=== PATIENT | male | born 1940 | race Caucasian/White ===

== ENCOUNTER 2016-12-17 11:47 | Inpatient (IN) | payer MEDICARE, OTHER ==
[~2016-12-17] VITALS: Ht 182.9 cm; Wt 117.8 kg
[~2016-12-17 11:47] MED LIST: ALLO300 PO; BUME1TAB PO; CARV6.25 PO; CENTTAB9 PO; COLC1TAB7 PO; PROT40TA PO; QUIN5 PO; SIMV20 PO; SPIR25 PO; ZITH250T PO
[2016-12-17 11:52] VITALS: BP 129/64; PULSE 79; RESP 18; TEMP 98.4; O2SAT 95
--- NOTE | 2016-12-17 12:11 | PD ---
HPI . Right foot and ankle injury Chief Complaint: Injury Time Seen by Provider: 12:07 Travel History International Travel<30 days: No Contact w/Intl Traveler<30days: No Traveled to known affect area: No History of Present Illness HPI 76-year-old male patient presents to the emergency room for evaluation of right foot and ankle swelling, ecchymosis and pain. Patient states he was walking up stairs from his garage into his house last Monday and twisted his foot in an awkward position. Patient has had pain and swelling ever since. The foot and leg is neurovascularly intact. Patient has been ambulatory on the leg with his walker or cane since the injury. Patient is able to wiggle his toes but has decreased range of motion associated with ankle. Dorsi and pedal flexion limited. There is ecchymosis noted on the lateral aspect of the foot from the second toe to the fifth toe and extending upward towards the lateral malleolus. She denies any history of diabetes. Patient denies any chest pain, shortness breath, fevers, chills, malaise, nausea, vomiting, diarrhea. PFSH Past Medical History Blood Disorders: No Heart Rhythm Problems: Yes Cancer: Yes (SKIN CANCER) Cardiovascular Problems: Yes (CHF) High Cholesterol: Yes Chest Pain: Yes Congestive Heart Failure: Yes Coronary Artery Disease: Yes Diminished Hearing: Yes Endocrine: No GERD: Yes Hypertension: Yes Musculoskeletal: Yes (GOUT) Neurologic: Yes (MS AND SEE NEURO SURGERY COMMENT) Psychiatric: No Respiratory: Yes (CHF, WEARS CPAP AT NIGHT) Myocardial Infarction: Yes Renal Failure: Yes (RENAL INSUFFICIENCY ON FLUID RESTRICTION) Ulcer: Yes (GASTRIC) PNEUMOCCOCAL Vaccine (Year): 1 Past Surgical History AICD: Yes (04/29/08 MODEL [id number], [id number]) Body Medical Devices: HX OF ACUOSTIC NEUROMA Cardiac Surgery: Yes (2001 STENT, PACER WIRES, NO PACER aicd) Eye Surgery: Yes (OD CATARACT) Neurologic Surgery: Yes (ACOUSTIC NEUROMA 1994, NERVE INJURY HEARING, BALANCE DIFF, FACIAL PARALYSIS) Pacemaker: Yes (PACER/DEFIB PLACED IN JUNE 2005) Social History Alcohol Use: Yes Tobacco Use: No Substance Use: No Allergies-Medications (Allergen,Severity, Reaction): Coded Allergies: acetaminophen (Unverified Allergy, Severe, Rash, 10/18/16) codeine (Unverified Allergy, Severe, Rash, 10/18/16) Reported Meds & Prescriptions Reported Meds & Active Scripts Active Reported Spironolactone 25 Mg Tab 25 Mg PO DAILY Simvastatin 20 Mg Tab 20 Mg PO DAILY Accupril (Quinapril HCl) 5 Mg Tab 5 Mg PO BID Protonix (Pantoprazole Sodium) 40 Mg Tab 40 Mg PO BID Multiple Vitamin 1 Tab 1 Tab PO DAILY Colchicine 0.6 Mg Cap 0.6 Mg PO DAILY Coreg (Carvedilol) 12.5 Mg Tab 12.5 Mg PO DAILY Bumetanide 1 Mg Tab 1 Mg PO BID Allopurinol 300 Mg Tab 300 Mg PO DAILY Review of Systems Except as stated in HPI: all other systems reviewed are Neg Physical Exam Narrative GENERAL: Well-nourished, well-developed 76-year-old male patient in no acute distress. Nontoxic appearing. SKIN: Focused skin assessment warm/dry. HEAD: Normocephalic. Atraumatic. EYES: No scleral icterus. No injection or drainage. NECK: Supple, trachea midline. No JVD or lymphadenopathy. CARDIOVASCULAR: Regular rate and rhythm without murmurs, gallops, or rubs. Pedal pulses +2 bilaterally. RESPIRATORY: Breath sounds equal bilaterally. No accessory muscle use. GASTROINTESTINAL: Abdomen soft, non-tender, nondistended. MUSCULOSKELETAL: Limited range of motion with dorsi and pedal flexion on the right lower extremity. Right foot and ankle edematous and ecchymotic. No erythema or cyanosis. BACK: Nontender without obvious deformity. No CVA tenderness. Data Data Last Documented VS Vital Signs Date Time Temp Pulse Resp B/P (MAP) Pulse Ox O2 Delivery O2 Flow Rate FiO2 12/17/16 13:24 16 12/17/16 11:52 98.4 79 129/64 (85) 95 Orders Orders Ice/Cold Pack (12/17/16 12:08) Ketorolac Inj (Toradol Inj) (12/17/16 12:15) Ankle, Limited (Ap&Lat) (12/17/16 12:08) Foot, Limited (2vws) (12/17/16 12:08) Electrocardiogram (12/17/16 14:03) Basic Metabolic Panel (Bmp) (12/17/16 14:03) Complete Blood Count With Diff (12/17/16 14:03) Prothrombin Time / Inr (Pt) (12/17/16 14:03) Act Partial Throm Time (Ptt) (12/17/16 14:03) Chest, Single Ap (12/17/16 14:13) Labs Laboratory Tests Test 12/17/16 14:05 White Blood Count 7.3 TH/MM3 Red Blood Count 4.48 MIL/MM3 Hemoglobin 14.6 GM/DL Hematocrit 44.2 % Mean Corpuscular Volume 98.6 FL Mean Corpuscular Hemoglobin 32.7 PG Mean Corpuscular Hemoglobin Concent 33.2 % Red Cell Distribution Width 14.9 % Platelet Count 133 TH/MM3 Mean Platelet Volume 9.3 FL Neutrophils (%) (Auto) 59.1 % Lymphocytes (%) (Auto) 26.8 % Monocytes (%) (Auto) 7.7 % Eosinophils (%) (Auto) 5.2 % Basophils (%) (Auto) 1.2 % Neutrophils # (Auto) 4.2 TH/MM3 Lymphocytes # (Auto) 2.0 TH/MM3 Monocytes # (Auto) 0.6 TH/MM3 Eosinophils # (Auto) 0.4 TH/MM3 Basophils # (Auto) 0.1 TH/MM3 CBC Comment DIFF FINAL Differential Comment MDM Medical Decision Making Medical Screen Exam Complete: Yes Emergency Medical Condition: Yes Differential Diagnosis Differential diagnoses include but not limited to right foot fracture, right foot contusion, ankle sprain Narrative Course 76-year-old male presents to the emergency room for evaluation of right foot pain and swelling that started last Monday when he was walking up steps and twisted his ankle in an awkward position. The right foot is ecchymotic and edematous. He has limited range of motion with dorsi and pedal flexion. The foot is neurovascularly intact. X-ray of the right ankle and foot ordered and pending. Ice applied to the right foot. Toradol IM injection ordered for pain and swelling. Ankle x-ray shows distal fibular fracture and slight widening in the ankle mortise. Inferior and posterior calcaneal Spurs present Foot x-ray shows the same distal tibia fracture. Call placed to the fishing vessel operator on-call, Dr. Balbuena. Dr. Balbuena is going to surgically repair the fracture. The patient will be admitted to [facility] with a Dr Balbuena consult. Dr. Stern accepted admission. CBC, BMP, chest x-ray and EKG ordered and pending for surgical clearance. Patient will be admitted. Diagnosis Primary Impression: Fibula fracture Qualified Codes: S82.831A - Other fracture of upper and lower end of right fibula, initial encounter for closed fracture Additional Impression: Right ankle swelling Admitting Information Admitting Physician Requests: Observation Ruby Latif Dec 17, 2016 12:11
[2016-12-17] MEDS ORDERED: SIMV20TA PO (12:14)
[2016-12-17] MEDS ORDERED: BUME1TAB PO (12:14)
[2016-12-17] MEDS ORDERED: PROT40TA PO (12:14)
[2016-12-17] MEDS ORDERED: MULTTAB67 PO (12:14)
[2016-12-17] MEDS ORDERED: CARV12.5 PO (12:14)
[2016-12-17] MEDS ORDERED: COLC1CAP3 PO (12:14)
[2016-12-17] MEDS ORDERED: ALLO300T2 PO (12:14)
[2016-12-17] MEDS ORDERED: ACCU5TAB PO (12:14)
[2016-12-17] MEDS ORDERED: SPIR25TA PO (12:14)
[2016-12-17] MEDS ORDERED: KETOROLAC TROMETHAMINE 60 MG/2 ML (IM) VIAL IM ONE (12:15)
--- NOTE | 2016-12-17 12:53 | RADRPT ---
EXAM DATE/TIME: 12/17/2016 12:28 [facility] COMPARISON: No previous studies available for comparison. INDICATIONS : Fall. Right ankle pain. MEDICAL HISTORY : None. SURGICAL HISTORY : None. ENCOUNTER: Initial ACUITY: 1 day PAIN SCORE: 9/10 LOCATION: Right lateral FINDINGS: There is oblique fracture of the distal fibula. The tibia is intact. There is slight widening the ank le mortise medially. Inferior and posterior calcaneal spurs are present. CONCLUSION: 1. Distal fibular fracture as above Jose Waller MD on December 17, 2016 at 12:51 Board Certified Radiologist. This report was verified electronically.
--- NOTE | 2016-12-17 12:58 | RADRPT ---
EXAM DATE/TIME: 12/17/2016 12:28 [facility] COMPARISON: No previous studies available for comparison. INDICATIONS : Fall. Right foot pain. MEDICAL HISTORY : None. SURGICAL HISTORY : None. ENCOUNTER: Initial ACUITY: 1 day PAIN SCORE: 8/10 LOCATION: Right lateral FINDINGS: Two view examination of the right foot demonstrates no soft tissue swelling, dislocation, or fracture . The calcaneus is intact. Bony mineralization is normal. Fracture of the distal fibula is again id entified. Inferior and posterior calcaneal spurs are present. CONCLUSION: 1. Distal fibula fracture Jose Waller MD on December 17, 2016 at 12:56 Board Certified Radiologist. This report was verified electronically.
[2016-12-17 14:17] LABS: AUTOMATED NEUTROPHIL # 4.2 TH/MM3 (1.8-7.7); BASOPHIL # 0.1 TH/MM3 (0-0.2); BASOPHIL % 1.2 % (0.0-2.0); EOSINOPHIL # 0.4 TH/MM3 (0-0.4); EOSINOPHIL % 5.2 % (0.0-4.0); HEMATOCRIT 44.2 % (39.0-51.0); HEMO FLAGS DIFF FINAL; LYMPH % 26.8 % (9.0-44.0); MEAN CELL VOLUME 98.6 FL (80.0-100.0); MEAN CORPUSCULAR HEMOGLOBIN 32.7 PG (27.0-34.0); MEAN CORPUSCULAR HGB CONC 33.2 % (32.0-36.0); MONO % 7.7 % (0.0-8.0); NEUT % 59.1 % (16.0-70.0); PLATELET COUNT 133 TH/MM3 (150-450); RED BLOOD COUNT 4.48 MIL/MM3 (4.50-5.90); RED CELL DISTRIBUTION WIDTH 14.9 % (11.6-17.2); WHITE BLOOD COUNT 7.3 TH/MM3 (4.0-11.0)
[2016-12-17 14:28] VITALS: BP 100/64; PULSE 67; RESP 16; O2SAT 97
[2016-12-17 14:33] LABS: APTT (PATIENT) 26.6 SEC (24.3-30.1); POTASSIUM 4.3 MEQ/L (3.5-5.1); PROTHROMBIN TIME - PATIENT 11.6 SEC (9.8-11.6)
[2016-12-17] MEDS ORDERED: SENNOSIDES 8.6 MG TAB PO PRN (14:45)
[2016-12-17] MEDS ORDERED: LACTULOSE SYRUP 20 GM/30 ML CUP PO PRN (14:45)
[2016-12-17] MEDS ORDERED: NALOXONE HCL 0.4 MG/ML AMP IV PUSH PRN (14:45)
[2016-12-17] MEDS ORDERED: ONDANSETRON HCL 4 MG/2 ML VIAL IVP PRN (14:45)
[2016-12-17] MEDS ORDERED: SODIUM CHLORIDE 0.9% FLUSH 10 ML FLUSH IV FLUSH PRN (14:45)
[2016-12-17] MEDS ORDERED: TEMAZEPAM 15 MG CAP PO PRN (14:45)
--- NOTE | 2016-12-17 14:52 | EKG ---
Date Performed: 12/17/2016 Time Performed: 14:12:40 PTAGE: 76 years EKG: ELECTRONIC VENTRICULAR PACEMAKER ABNORMAL RHYTHM ECG Compared to prior electrocardiogram, u nderlying rhythm on prior EKG is unclear and there was previously a left bundle branch block. PREVIOUS TRACING : 06/13/2011 09.34 DOCTOR: Haroldo Johnson Interpretating Date/Time 12/17/2016 14:52:03
--- NOTE | 2016-12-17 15:15 | RADRPT ---
EXAM DATE/TIME: 12/17/2016 14:39 [facility] COMPARISON: No previous studies available for comparison. INDICATIONS : Congestion. Pre-op. MEDICAL HISTORY : None. SURGICAL HISTORY : Pacemaker. ENCOUNTER: Initial ACUITY: 1 day PAIN SCORE: 5/10 LOCATION: Bilateral chest FINDINGS: The cardiac silhouette is enlarged in transverse diameter. The lungs are free of acute parenchymal op acity. No effusions are identified. A biventricular defibrillator is in place via a left sided approa ch. CONCLUSION: 1. Cardiomegaly. No acute pulmonary disease. Jose Waller MD on December 17, 2016 at 15:13 Board Certified Radiologist. This report was verified electronically.
--- NOTE | 2016-12-17 16:32 | MB ---
cc: NITISH MARTIN DPM DATE OF CONSULTATION 12/17/16 REASON FOR CONSULTATION Right ankle fracture. HISTORY OF PRESENT ILLNESS This is a 76-year-old male who has three steps at home in which he fell approximately 1 week ago, twisting his foot. He had some pain and swelling that slightly decreased, however, in the last [id number] days it has significantly worsened and there is significant bruising. The patient presented to the [facility] Emergency Room. X-rays were taken and there is noted to be displaced fibular fracture with likely medial malleolar fracture/deltoid rupture. Consultation placed to podiatry for evaluation and likely surgical intervention. Currently, I am seeing the patient bedside. He denies any other incident or injury. It appears that only his ankle is bothering him. PAST MEDICAL HISTORY Positive for skin cancer, CHF. He does have a history of heart rhythm issues. He has history of hypertension, gastroesophageal reflux disease. Brother has a history of MS. He wears a C-PAP at night time. He has renal insufficiency and he is on fluid restrictions. History of gastric ulcer. PAST SURGICAL HISTORY AICD 04/29/2008. He has a history of an acoustic neuroma. Cardiac surgery 2001 stent, pacer wires. History of cataract surgery. Neurologic surgery, acoustic neuroma. Pacer defibrillator placed in June 2005. SOCIAL HISTORY Alcohol positive. Tobacco and substance none. CODED ALLERGIES ACETAMINOPHEN AND CODEINE. MEDICATIONS Reported outpatient medications: 1. Spironolactone. 2. Simvastatin. 3. Accupril. 4. Protonix. 5. Multivitamin. 6. Colchicine. 7. Coreg. 8. Bumetanide. 9. Allopurinol. REVIEW OF SYSTEMS Negative. PHYSICAL EXAMINATION GENERAL: This is an alert and oriented male seen bedside exhibiting nonlabored respirations. VITAL SIGNS: Temperature is 98.4, pulse rate 67, respiratory rate is 16, blood pressure is 100/64. He is satting 97% on room air. DIRECTED EXAMINATION: The patient is capable of moving the upper and lower extremities. The left lower extremity is without any issues. The right lower extremity focused examination, starting from the knee distal there is no pain upon palpating the distal tibia, however, there is significant bruising, edema and ecchymosis at the level of the medial malleolus, lateral malleolus coursing down to the midfoot. There appears to be a slightly externally rotated foot with definite pain upon palpating the distal fibula and the distal medial malleolus. The patient is capable of extension and flexion. Pedal pulses are fully palpable. Sensation appears to be intact. There is no obvious compromise to the soft tissue envelope. There is no obvious fracture blister LABORATORY FINDINGS White blood cell 7.3, hemoglobin/hematocrit 14 and 44, platelet count 133. Chem-7 sodium 140, potassium 4.3, chloride 107, CO2 24, BUN 23, creatinine 1.2, random glucose 91, calcium 8.3, estimated GFR 59. Coagulation profile PT 11.6, INR 1.0. IMAGING FINDINGS Ankle mortise appears to be slightly malaligned. There appears to be greater than 2 mm step-off of the distal fibula. There is an oblique fracture at the level of the ankle joint. There is a possible fracture seen, however, the view was somewhat obscured over the medial malleolus. The distal tibia other than the medial malleolus appeared to have no intra-articular fracture. Medial clear space appeared to be slightly gapped on the medial. There is no obvious proximal diastasis seen of the proximal tib/fib syndesmosis. Chest x-ray cardiomegaly, no acute pulmonary disease. ELECTROCARDIOGRAMS Electrocardiogram compared to prior electrocardiogram, underlying rhythm on prior EKG is unclear. There was previously left bundle-branch block. ASSESSMENT/PLAN Right ankle, fibular fracture with likely rupture of the medial deltoid ligament. This will be requiring surgical intervention to stabilize and allow for ambulation. The patient has a cardiac history. Cardiology clearance will be requested prior to moving forward with surgery. I explained in great detail with the patient what it would involve correcting the broken bones including plating and screws to stabilize the ankle. There will be a period of non-weightbearing progressing to partial weightbearing and full weightbearing. Recovery may take as long as 3 to 18 months for full healing. The patient may need fdc facility placement pending his support system and how he does with PT in the postoperative period. The patient will be transferred to the main hospital for more appropriate care as is the standard for correcting of ankle fractures as opposed to being here in the [place]. I communicated the progress and plan with the PA and the ER physician. JUANA Jordan /3:55 PM /4:11 PM MTDConnie
[2016-12-17 16:40] VITALS: BP 114/64; PULSE 76; RESP 16; O2SAT 97
[2016-12-17 18:03] VITALS: BP 136/82; PULSE 72; RESP 20; TEMP 97.6; O2SAT 98
[2016-12-17] MEDS ORDERED: ACETAMINOPHEN/HYDROcodone 325 MG/5 MG TAB PO PRN (18:15)
--- NOTE | 2016-12-17 18:24 | HHI.HP ---
[facility] Primary Care Physician Non-Staff Admission Diagnosis right distal fibula fracture Diagnoses: (1) Fibula fracture Diagnosis: Principal Chief Complaint: right ankle pain Travel History International Travel<30 Days: No Contact w/Intl Traveler <30 Da: No Traveled to Known Affected Are: No History of Present Illness patient is a 76 y/o male with history of CAD,hypertension, dyslipidemia, CHF who presented to ER with right ankle pain. he says that he was climbing up the stairs to his house when he twisted his ankle . this happened last Monday. he says that he started to have some pain and swelling of the right ankle and he decided to come to ER. he denies any prodromal symptoms including chest pain, sob or dizziness. there's no report of loss of consciousness or head trauma. pain at the time of my evaluation was mild. Review of Systems Constitutional: DENIES: Fever, Weight loss, Chills, Night Sweats Eyes: DENIES: Blurred vision, Diplopia, Vision loss, Double Vision Ears, nose, mouth, throat: DENIES: Tinnitus, Vertigo, Throat pain, Epistaxis Respiratory: DENIES: Apneas, Cough, Snoring, Wheezing, Hemoptysis, Sputum production, Shortness of breath Cardiovascular: DENIES: Chest pain, Palpitations, Syncope, Dyspnea on Exertion , PND, Lower Extremity Edema, Orthopnea, Claudication Gastrointestinal: DENIES: Abdominal pain, Black stools, Bloody stools, Constipation, Diarrhea, Nausea, Vomiting, Difficulty Swallowing, Anorexia Genitourinary: DENIES: Urinary frequency, Urgency, Hematuria, Dysuria Musculoskeletal: COMPLAINS OF: Joint pain (right ankle.), DENIES: Muscle aches , Stiffness, Joint Swelling Integumentary: DENIES: Rash Neurologic: DENIES: Abnormal gait, Headache, Localized weakness, Paresthesias, Seizures, Speech Problems, Tremor, Poor Balance Psychiatric: DENIES: Anxiety, Confusion, Mood changes, Depression, Hallucinations, Agitation, Suicidal Ideation, Homicidal Ideation, Delusions Past Family Social History Past Medical History CAD hypertension dyslipidemia CHF Past Surgical History shoulder surgery defibrillator placement Reported Medications Spironolactone 25 Mg Tab 25 Mg PO DAILY Simvastatin 20 Mg Tab 20 Mg PO DAILY Accupril (Quinapril HCl) 5 Mg Tab 5 Mg PO BID Protonix (Pantoprazole Sodium) 40 Mg Tab 40 Mg PO BID Multiple Vitamin 1 Tab 1 Tab PO DAILY Colchicine 0.6 Mg Cap 0.6 Mg PO DAILY Coreg (Carvedilol) 12.5 Mg Tab 12.5 Mg PO DAILY Bumetanide 1 Mg Tab 1 Mg PO BID Allopurinol 300 Mg Tab 300 Mg PO DAILY Allergies: Coded Allergies: acetaminophen (Unverified Allergy, Severe, Rash, 10/18/16) codeine (Unverified Allergy, Severe, Rash, 10/18/16) Active Ordered Medications Current Medications Ketorolac Tromethamine (Toradol Inj) 30 mg ONCE ONCE IM Last administered on 12/17/16t 12:24; Start 12/17/16 at 12:15; Stop 12/17/16 at 12:16; Status DC Sodium Chloride (NS Flush) 2 ml UNSCH PRN IV FLUSH FLUSH AFTER USING IV ACCESS ; Start 12/17/16 at 14:45 Sodium Chloride (NS Flush) 2 ml BID IV FLUSH ; Start 12/17/16 at 21:00 Ondansetron HCl (Zofran Inj) 4 mg Q6H PRN IVP NAUSEA OR VOMITING; Start at 14:45 Temazepam (Restoril) 15 mg HS PRN PO INSOMNIA; Start 12/17/16 at 14:45 Naloxone HCl (Narcan Inj) 0.4 mg UNSCH PRN IV PUSH SEE LABEL COMMENTS; Start 12/17/16 at 14:45 Senna/Docusate Sodium (Marialuisa-Colace) 1 tab BID PO ; Start 12/17/16 at 21:00 Magnesium Hydroxide (Milk Of Magnesia Liq) 30 ml Q12H PRN PO Mild constipation ; Start 12/17/16 at 14:45 Sennosides (Senokot) 17.2 mg Q12H PRN PO Moderate constipation; Start at 14:45 Lactulose (Lactulose Liq) 30 ml DAILY PRN PO SEVERE CONSITIPATION; Start 12/17 at 14:45 Family History not relevant to this admission. Social History quit smoking years ago. drinks beer daily. Physical Exam Vital Signs Vital Signs Date Time Temp Pulse Resp B/P (MAP) Pulse Ox O2 Delivery O2 Flow Rate FiO2 12/17/16 18:03 97.6 72 20 136/82 (100) 98 12/17/16 17:15 12/17/16 16:40 76 16 114/64 (81) 97 Room Air 12/17/16 14:28 67 16 100/64 (76) 97 Room Air 12/17/16 14:00 16 97 Room Air 12/17/16 13:24 16 12/17/16 11:52 98.4 79 18 129/64 (85) 95 Physical Exam GENERAL: This is a well-nourished, well-developed patient, in no apparent distress. SKIN: No rashes, ecchymoses or lesions. Cool and dry. HEAD: Atraumatic. Normocephalic. No temporal or scalp tenderness. EYES: Pupils equal round and reactive. Extraocular motions intact. No scleral icterus. No injection or drainage. ENT: Nose without bleeding, purulent drainage or septal hematoma. Throat without erythema, tonsillar hypertrophy or exudate. Uvula midline. Airway patent. NECK: Trachea midline. No JVD or lymphadenopathy. Supple, nontender, no meningeal signs. CARDIOVASCULAR: Regular rate and rhythm without murmurs, gallops, or rubs. RESPIRATORY: Clear to auscultation. Breath sounds equal bilaterally. No wheezes , rales, or rhonchi. GASTROINTESTINAL: Abdomen soft, non-tender, nondistended. No hepato-splenomegaly , or palpable masses. No guarding. MUSCULOSKELETAL: right leg covered with clean dressing. NEUROLOGICAL: Awake and alert. Cranial nerves II through XII intact. Motor and sensory grossly within normal limits. Five out of 5 muscle strength in all muscle groups. Normal speech. Laboratory Laboratory Tests Test 12/17/16 14:05 White Blood Count 7.3 Red Blood Count 4.48 Hemoglobin 14.6 Hematocrit 44.2 Mean Corpuscular Volume 98.6 Mean Corpuscular Hemoglobin 32.7 Mean Corpuscular Hemoglobin Concent 33.2 Red Cell Distribution Width 14.9 Platelet Count 133 Mean Platelet Volume 9.3 Neutrophils (%) (Auto) 59.1 Lymphocytes (%) (Auto) 26.8 Monocytes (%) (Auto) 7.7 Eosinophils (%) (Auto) 5.2 Basophils (%) (Auto) 1.2 Neutrophils # (Auto) 4.2 Lymphocytes # (Auto) 2.0 Monocytes # (Auto) 0.6 Eosinophils # (Auto) 0.4 Basophils # (Auto) 0.1 CBC Comment DIFF FINAL Differential Comment Prothrombin Time 11.6 Prothromb Time International Ratio 1.0 Activated Partial Thromboplast Time 26.6 Blood Urea Nitrogen 23 Creatinine 1.20 Random Glucose 91 Calcium Level 8.3 Sodium Level 140 Potassium Level 4.3 Chloride Level 107 Carbon Dioxide Level 24.0 Anion Gap 9 Estimat Glomerular Filtration Rate 59 Result Diagram: 12/17/16 1405 12/17/16 140 Imaging Last Impressions Foot X-Ray 12/17/16 120 Signed Impressions: Service Date/Time: Saturday, December 17, 2016 12:28 - CONCLUSION: 1. Distal fibula fracture Jose Waller MD Ankle X-Ray 12/17/168 Signed Impressions: Service Date/Time: Saturday, December 17, 2016 12:28 - CONCLUSION: 1. Distal fibular fracture as above Jose Waller MD Caprini VTE Risk Assessment Caprini VTE Risk Assessment: Mod/High Risk (score >= 2) (awaiting surgery.) Caprini Risk Assessment Model Point Value = 1 Point Value = 2 Point Value = 3 Point Value = 5 Age 41-60 Minor surgery BMI > 25 kg/m2 Swollen legs Varicose veins or History of unexplained or recurrent spontaneous Oral contraceptives or hormone replacement Sepsis (< 1 month) Serious lung disease, including pneumonia (< 1 month) Abnormal pulmonary function Acute myocardial infarction Congestive heart failure (< 1 month) History of inflammatory bowel disease Medical patient at bed rest Age 61-74 Arthroscopic surgery Major open surgery (> 45 min) Laparoscopic surgery (> 45 min) Malignancy Confined to bed (> 72 hours) Immobilizing plaster cast Central venous access Age >= 75 History of VTE Family history of VTE Factor V Leiden Prothrombin [id number] Lupus anticoagulant Anticardiolipin antibodies Elevated serum homocysteine Heparin-induced thrombocytopenia Other congenital or acquired thrombophilia Stroke (< 1 month) Elective arthroplasty Hip, pelvis, or leg fracture Acute spinal cord injury (< 1 month) Prophylaxis Regimen Total Risk Factor Score Risk Level Prophylaxis Regimen 0-1 Low Early ambulation 2 Moderate Order ONE of the following: *Sequential Compression Device (SCD) *Heparin 5000 units SQ BID 3-4 Higher Order ONE of the following medications: *Heparin 5000 units SQ TID *Enoxaparin/Lovenox 40 mg SQ daily (WT < 150 kg, CrCl > 30 mL/min) *Enoxaparin/Lovenox 30 mg SQ daily (WT < 150 kg, CrCl > 10-29 mL/min) *Enoxaparin/Lovenox 30 mg SQ BID (WT < 150 kg, CrCl > 30 mL/min) AND/OR *Sequential Compression Device (SCD) 5 or more Highest Order ONE of the following medications: *Heparin 5000 units SQ TID (Preferred with Epidurals) *Enoxaparin/Lovenox 40 mg SQ daily (WT < 150 kg, CrCl > 30 mL/min) *Enoxaparin/Lovenox 30 mg SQ daily (WT < 150 kg, CrCl > 10-29 mL/min) *Enoxaparin/Lovenox 30 mg SQ BID (WT < 150 kg, CrCl > 30 mL/min) AND *Sequential Compression Device (SCD) Assessment and Plan Assessment and Plan A/P - right ankle fracture continue with pain control- podiatry consult appreciated; plan for surgical repair. -CAD- s/p stent placement; continue BB, REJI and statin cardiology consulted for clearance. -history of CHF- chronic systolic- s/p defibrillator placement- resume BB,REJI and diuretics -hypertension/ dyslipidemia; resume home meds -DVT prophylaxis; pending surgical intervention Discussed Condition With the patient and RN. Physician Certification 2 Midnight Certification Type: Admission for Inpatient Services Order for Inpatient Services The services are ordered in accordance with Medicare regulations or non- Medicare payer requirements, as applicable. In the case of services not specified as inpatient-only, they are appropriately provided as inpatient services in accordance with the 2-midnight benchmark. Estimated LOS (days): 2 days is the estimated time the patient will need to remain in the hospital, assuming treatment plan goals are met and no additional complications. Post-Hospital Plan: Not yet determined Physician Certification 2 Midnight Certification Type: Admission for Inpatient Services Order for Inpatient Services The services are ordered in accordance with Medicare regulations or non- Medicare payer requirements, as applicable. In the case of services not specified as inpatient-only, they are appropriately provided as inpatient services in accordance with the 2-midnight benchmark. Estimated LOS (days): 2 days is the estimated time the patient will need to remain in the hospital, assuming treatment plan goals are met and no additional complications. Post-Hospital Plan: Not yet determined Problem Qualifiers (1) Fibula fracture: Qualified Codes: S82.831A - Other fracture of upper and lower end of right fibula, initial encounter for closed fracture Regan Scanlon MD Dec 17, 2016 18:24
[2016-12-17] MEDS: BUMETANIDE 1 MG TAB PO SCH (20:52)
[2016-12-17] MEDS: LISINOPRIL 5 MG TAB PO SCH (20:53)
[2016-12-17] MEDS: PANTOPRAZOLE SOD 40 MG DELAYED RELEASE TAB PO SCH (20:53)
[2016-12-17] MEDS: DOCUSATE SODIUM 50 MG/SENNA 8.6 MG TAB PO SCH (20:53)
[2016-12-17] MEDS: SODIUM CHLORIDE 0.9% FLUSH 10 ML FLUSH IV FLUSH SCH (20:59)
[2016-12-17 21:00] VITALS: BP 130/72; PULSE 79; RESP 20; TEMP 97.9; O2SAT 95
[2016-12-17] MEDS ORDERED: SODIUM CHLORID 0.9% 500 ML IV PRN (22:15)
[2016-12-17] MEDS ORDERED: LACTATED RINGER'S 1000 ML IV PRN (22:15)
[2016-12-17] MEDS ORDERED: POVIDONE IODINE 5% (ANTISEPSIS KIT) 4 APPLICATIONS EACH NARE PRN (22:15)
[2016-12-17] MEDS ORDERED: CHLORHEXIDINE GLUCONATE 2 % 1 PACK (2 CLOTHS) TOPICAL PRN (22:15)
[2016-12-17] MEDS ORDERED: INSULIN HUMAN REGULAR 1,000 UNITS/10 ML VIAL SQ PRN (22:15)
[2016-12-17] MEDS: SODIUM CHLOR 0.9% 1000 ML INJ 1,000 ML IV SCH (23:03)
[2016-12-17 23:45] VITALS: BP 128/66; PULSE 73; RESP 18; TEMP 98.3; O2SAT 96
[2016-12-18 04:00] VITALS: BP 126/68; PULSE 61; RESP 18; TEMP 96.9; O2SAT 97
[2016-12-18] MEDS ORDERED: GENTAMICIN SULFATE 80 MG/2 ML VIAL ONE ×2 (06:41→07:39)
[2016-12-18] MEDS ORDERED: BUPIVACAINE HCL PF 0.25% 30 ML VIAL ONE (06:41)
[2016-12-18] MEDS: PANTOPRAZOLE SOD 40 MG DELAYED RELEASE TAB PO SCH ×2 (06:43→20:57)
[2016-12-18] MEDS: ALLOPURINOL 300 MG TAB PO SCH (06:43)
[2016-12-18] MEDS: DOCUSATE SODIUM 50 MG/SENNA 8.6 MG TAB PO SCH ×2 (06:43→20:57)
[2016-12-18] MEDS: COLCHICINE 0.6 MG TAB PO SCH (06:44)
[2016-12-18] MEDS: PRAVASTATIN SOD 40 MG TAB PO SCH (06:45)
[2016-12-18] MEDS: SPIRONOLACTONE 25 MG TAB PO SCH (07:14)
[2016-12-18] MEDS: CARVEDILOL 12.5 MG TAB PO SCH (07:14)
[2016-12-18] MEDS: BUMETANIDE 1 MG TAB PO SCH ×2 (07:14→20:57)
[2016-12-18] MEDS: LISINOPRIL 5 MG TAB PO SCH ×2 (07:14→20:57)
[2016-12-18] MEDS: SODIUM CHLORIDE 0.9% FLUSH 10 ML FLUSH IV FLUSH SCH (07:16)
[2016-12-18 07:18] VITALS: BP 136/74; PULSE 71; RESP 18; TEMP 96.7; O2SAT 95
[2016-12-18] MEDS ORDERED: ceFAZolin INJ 1,000 MG VIAL ONE (07:31)
[2016-12-18] MEDS ORDERED: PROPOFOL 500 MG/50 ML INJ 50 ML ONE (09:18)
[2016-12-18] MEDS ORDERED: DO NOT ADM ANY ANTICOAGULANT DRUGS PRN (09:51)
--- NOTE | 2016-12-18 09:54 | HHI.PR ---
Immediate Post Op Note Procedure Date: Dec 18, 2016 Pre Op Diagnosis: (1) Fibula fracture (2) Right ankle swelling Post Op Diagnosis: (1) Fibula fracture (2) Right ankle swelling Surgeon: Nilay Bautista Public Relations Associate(s): scrub Procedure: Right Ankle ORIF with syndesmosis stabilization Findings: Materials: Synthes distal fibular locking plate, locking and non locking screws. Complications: none Specimen(s) removed: none Estimated blood loss: Less than 30mL Anesthesia: Spinal Drains: None Fluids: 600mL Tourniquet time (min at mmHg) 68 minutes 250 mmhg Patient to: Other Patient Condition: Good Implant/Devices: SEE IMPLANT LOG (if applicable) Date/Time of Procedure: SEE SURGICAL CARE RECORD Nilay Bautista DPM Dec 18, 2016 09:54
[2016-12-18] MEDS ORDERED: Post-op Orders (for Pharmacy) MISC XX ONE (10:00)
--- NOTE | 2016-12-18 11:42 | RADRPT ---
EXAM DATE/TIME: 12/18/2016 08:58 [facility] COMPARISON: ANKLE RIGHT LIMITED (AP&LAT), December 17, 2016, 12:28. INDICATIONS : Open reduction internal fixation. MEDICAL HISTORY : None. SURGICAL HISTORY : None. ENCOUNTER: Initial ACUITY: 1 day PAIN SCORE: Non-responsive. LOCATION: Right ankle. FINDINGS: Status post internal fixation of the ankle. There is good position and alignment of fracture fragment s. There is good alignment of the mortise joint. The hardware is grossly intact. CONCLUSION: Good position and alignment on this postoperative study. Joel Newberry MD on December 18, 2016 at 11:40 Board Certified Radiologist. This report was verified electronically.
--- NOTE | 2016-12-18 11:50 | HHI.PR ---
Subjective Remarks had surgical intervention earlier. now resting comfortably. denies pain. no other complaints. Objective Vitals Vital Signs Date Time Temp Pulse Resp B/P (MAP) Pulse Ox O2 Delivery O2 Flow Rate FiO2 12/18/16 11:30 73 18 124/68 (86) 94 Room Air 12/18/16 11:00 75 18 115/61 (79) 95 Room Air 12/18/16 10:45 74 18 106/57 (73) 93 Room Air 12/18/16 10:30 72 18 111/58 (75) 94 Room Air 12/18/16 10:15 76 18 96/59 (71) 93 Room Air 12/18/16 10:00 75 18 100/60 (73) 93 Room Air 12/18/16 09:52 97.5 75 18 107/62 (77) 96 Simple Mask 12/18/16 07:18 96.7 71 18 136/74 (94) 95 12/18/16 04:00 96.9 61 18 126/68 (87) 97 12/18/16 00:09 Nasal Cannula 2.00 12/17/16 23:45 98.3 73 18 128/66 (86) 96 12/17/16 21:00 97.9 79 20 130/72 (91) 95 12/17/16 18:03 97.6 72 20 136/82 (100) 98 12/17/16 17:15 12/17/16 16:40 76 16 114/64 (81) 97 Room Air 12/17/16 14:28 67 16 100/64 (76) 97 Room Air 12/17/16 14:00 16 97 Room Air 12/17/16 13:24 16 12/17/16 11:52 98.4 79 18 129/64 (85) 95 I/O 12/17/16 12/17/16 12/17/16 12/18/16 12/18/16 12/18/16 07:00 15:00 23:00 07:00 15:00 23:00 Intake Total 352 ml 180 ml 840 ml Output Total 150 ml 600 ml Balance 202 ml 180 ml 240 ml Intake Oral 352 ml 240 ml IV Total 180 ml Other 600 ml Output Urine Total 150 ml 550 ml Estimated Blood Loss 50 ml # Bowel Movements 0 0 Result Diagram: 12/17/16 1405 12/17/16 1405 Imaging Last Impressions Chest X-Ray 12/17/16 1413 Signed Impressions: Service Date/Time: Saturday, December 17, 2016 14:39 - CONCLUSION: 1. Cardiomegaly. No acute pulmonary disease. Jose Waller MD Foot X-Ray 12/17/16 1208 Signed Impressions: Service Date/Time: Saturday, December 17, 2016 12:28 - CONCLUSION: 1. Distal fibula fracture Jose Waller MD Ankle X-Ray 12/17/16 1208 Signed Impressions: Service Date/Time: Saturday, December 17, 2016 12:28 - CONCLUSION: 1. Distal fibular fracture as above Jose Waller MD Objective Remarks GENERAL: This is a well-nourished, well-developed patient, in no apparent distress. CARDIOVASCULAR: Regular rate and regular rhythm without murmurs, gallops, or rubs. RESPIRATORY: Clear to auscultation. Breath sounds equal bilaterally. No wheezes , rales, or rhonchi. GASTROINTESTINAL: Abdomen soft, non-tender, nondistended. Normal, active bowel sounds MUSCULOSKELETAL: right ankle covered with clean dressing. NEURO: Alert & Oriented x4 to person, place, time, situation. Moves all ext x4 Procedures ORIF right ankle fracture. Medications and IVs Current Medications Ketorolac Tromethamine (Toradol Inj) 30 mg ONCE ONCE IM Last administered on 12/17/16 12:24; Start 12/17/16 at 12:15; Stop 12/17/16 at 12:16; Status DC Sodium Chloride (NS Flush) 2 ml UNSCH PRN IV FLUSH FLUSH AFTER USING IV ACCESS ; Start 12/17/16 at 14:45 Sodium Chloride (NS Flush) 2 ml BID IV FLUSH Last administered on 12/17/16t 20 :59; Start 12/17/16 at 21:00 Ondansetron HCl (Zofran Inj) 4 mg Q6H PRN IVP NAUSEA OR VOMITING; Start at 14:45 Temazepam (Restoril) 15 mg HS PRN PO INSOMNIA; Start 12/17/16 at 14:45 Naloxone HCl (Narcan Inj) 0.4 mg UNSCH PRN IV PUSH SEE LABEL COMMENTS; Start 12/17/16 at 14:45 Senna/Docusate Sodium (Marialuisa-Colace) 1 tab BID PO Last administered on 20:53; Start 12/17/16 at 21:00 Magnesium Hydroxide (Milk Of Magnesia Liq) 30 ml Q12H PRN PO Mild constipation ; Start 12/17/16 at 14:45 Sennosides (Senokot) 17.2 mg Q12H PRN PO Moderate constipation; Start at 14:45 Lactulose (Lactulose Liq) 30 ml DAILY PRN PO SEVERE CONSITIPATION; Start 12/17 at 14:45 Sodium Chloride 1,000 ml @ 30 mls/hr Q24H IV Last administered on 12/17/16 23:03; Start 12/17/16 at 23:30 Acetaminophen/ Hydrocodone Bitart (Avera 5-325 Mg) 1 tab Q4H PRN PO PAIN 3-10 ; Start 12/17/16 at 18:15; Stop 12/17/16 at 18:40; Status DC Hydromorphone HCl (Dilaudid Pf Inj) 0.5 mg Q4H PRN IV PUSH PAIN 4-10; Start at 18:15 Allopurinol (Zyloprim) 300 mg DAILY PO ; Start 12/18/16 at 09:00 Bumetanide (Bumetanide) 1 mg BID PO Last administered on 12/18/16 07:14; Start 12/17/16 at 21:00 Carvedilol (Coreg) 12.5 mg DAILY PO Last administered on 12/18/16 07:14; Start 12/18/16 at 09:00 Colchicine (Colchicine) 0.6 mg DAILY PO ; Start 12/18/16 at 09:00 Pantoprazole Sodium (Protonix) 40 mg BID PO ; Start 12/17/16 at 21:00 Lisinopril (Prinivil) 5 mg BID PO Last administered on 12/18/16 07:14; Start 12/17/16 at 21:00 Spironolactone (Aldactone) 25 mg DAILY PO Last administered on 12/18/16 07:14 ; Start 12/18/16 at 09:00 Pravastatin Sodium (Pravachol) 40 mg DAILY PO ; Start 12/18/16 at 09:00 Lactated Ringer's 1,000 ml @ 30 mls/hr Q24H PRN IV SEE LABEL COMMENTS; Start 12/17/16 at 22:15; Stop 12/20/16 at 22:14 Sodium Chloride 500 ml @ 30 mls/hr [id number] PRN IV SEE LABEL COMMENTS; Start at 22:15; Stop 12/20/16 at 22:14 Povidone Iodine (Betadine 5% Antisepsis Kit) 1 applic BRIEFCASE SEWER PRN EACH NARE SEE LABEL COMMENTS; Start 12/17/16 at 22:15; Stop 12/20/16 at 22:14 Chlorhexidine Gluconate (Chlorhexidine 2% Cloth) 3 pack BRIEFCASE SEWER PRN TOPICAL SEE LABEL COMMENTS; Start 12/17/16 at 22:15; Stop 12/20/16 at 22:14 Insulin Human Regular (NovoLIN R INJ) See Protocol Table ... BRIEFCASE SEWER PRN SQ SEE PROTOCOL TABLE; Start 12/17/16 at 22:15; Stop 12/20/16 at 22:14 Bupivacaine HCl (Marcaine Pf 0.25% Inj) 30 ml STK-MED ONCE .ROUTE ; Start 12/18 at 06:41; Stop 12/18/16 at 06:42; Status DC Gentamicin Sulfate (Gentamicin Inj) 160 mg STK-MED ONCE .ROUTE ; Start at 06:41; Stop 12/18/16 at 06:42; Status DC Cefazolin Sodium (Ancef Inj) 2,000 mg STK-MED ONCE .ROUTE Last administered on 12/18/16 08:00; Start 12/18/16 at 07:31; Stop 12/18/16 at 07:32; Status DC Gentamicin Sulfate (Gentamicin Inj) 240 mg STK-MED ONCE .ROUTE Last administered on 12/18/16 08:32; Start 12/18/16 at 07:39; Stop 12/18/16 at 07 :40; Status DC Propofol 50 ml @ As Directed STK-MED ONCE .ROUTE ; Start 12/18/16 at 09:18; Stop 12/18/16 at 09:19; Status DC Miscellaneous Information (Post-op Orders (for Pharmacy)) STAT ONCE XX ; Start 12/18/16 at 10:00; Stop 12/18/16 at 10:18; Status DC Enoxaparin Sodium (Lovenox Inj) 30 mg Q24H SQ ; Start 12/18/16 at 22:00 Miscellaneous Information ALL NURSING DEPARTME... UNSCH PRN .XX SEE LABEL COMMENTS; Start 12/18/16 at 09:51; Stop 12/19/16 at 09:50 A/P Problem List: (1) Fibula fracture ICD Code: S82.409A - Unspecified fracture of shaft of unspecified fibula, initial encounter for closed fracture Status: Acute Assessment and Plan - right ankle fracture continue with pain control- podiatry consult appreciated- s/p ORIF; management per podiatry. -CAD- s/p stent placement; continue BB, REJI and statin d/w today; cardiology consult cancelled. -history of CHF- chronic systolic- s/p defibrillator placement- resume BB,REJI and diuretics -hypertension/ dyslipidemia; resumed home meds -DVT prophylaxis; on subq Lovenox- per podiatry. Problem Qualifiers (1) Fibula fracture: Qualified Codes: S82.831A - Other fracture of upper and lower end of right fibula, initial encounter for closed fracture Regan Scanlon MD Dec 18, 2016 11:50
[2016-12-18 12:15] VITALS: BP 134/81; PULSE 70; RESP 17; TEMP 96.3; O2SAT 96
--- NOTE | 2016-12-18 13:28 | MP ---
cc: NILAY MARTIN DPM DATE OF SURGERY: 12/18/2016. PREOPERATIVE DIAGNOSIS: Right ankle distal fibular fracture with deltoid ligament rupture and compromise to syndesmosis distal ankle. POSTOPERATIVE DIAGNOSIS: Right ankle distal fibular fracture with deltoid ligament rupture and compromise to syndesmosis distal ankle. OPERATIVE PROCEDURE PERFORMED: Right ankle distal fibular open reduction internal fixation with plate and screws with stabilization of syndesmosis. SURGEON: Nilay Martin DPM COMPLICATIONS: None. SPECIMEN: None. ESTIMATED BLOOD LOSS: Less than 75 mL. ANESTHESIA: Spinal. FLUID: 600 mL of lactated Ringers. TOURNIQUET TIME: 68 minutes at a setting of 250 mmHg. MATERIALS USED: 1. Synthes distal fibular locking plate. 18 mm, 2.7 cortex screw. 52 mm 4.0 cortex screw. 60 mm 3.5 cortex screw. 2. Cortical plate screws: 12 mm 2.7 x2. 14 mm 2.7 x1. 3. Locking plate screws: 14 mm 2.7 x1. 16 mm 2.7 x4. JUSTIFICATION FOR THE PROCEDURE This is a pleasant 76-year-old man who is status post fall and slip at home. He was ambulating on what seemed to be a stable ankle fracture for approximately one week and then he had significant pain and presented to the emergency department and there was noted to be clear space widening with posterior and lateral displacement of the distal fibula deeming it an unstable surgical ankle. The emergency room contacted on-call podiatric surgery. The patient was seen in the emergency department verifying the pathology. Moderate swelling noted; however, no fracture or blisters. The soft tissue envelope was in good shape. We devised a plan to move forward with surgical intervention. Spinal anesthesia was decided upon to prevent any cardiac risk. The risks and benefits were reviewed with the patient: Delayed union, nonunion, burning, tingling, numbness, infection, DVT, PE, postoperative pneumonia were all reviewed with the patient. He consented for the procedure. DESCRIPTION OF THE PROCEDURE IN DETAIL: Under mild sedation, the patient was brought into the operating room and placed on the operating table in the supine position. Of note, the patient received a spinal block before positioning for surgery. The patient's right lower extremity was then scrubbed, prepped and draped in the usual aseptic fashion. The foot and ankle were elevated, exsanguinated and the previously placed mid-thigh tourniquet was inflated to 250 mmHg. An incision was made over the lateral aspect of the distal fibula. This was an approximately 15 cm incision. Sharp and blunt dissection was carried down through epidermis and the dermis being careful not to violate any vital neurovascular structures or the peroneal tendon or nerve. Sharp and blunt dissection was carried down through fascia. Subperiosteal dissection took place. The fracture was identified. It was noted to be oblique, a clean break without any comminution. It was then distracted and the anterolateral aspect of the talar dome was visualized. There was no obvious osteochondral lesion or foreign body noted within the ankle. The fractured hematoma was curetted. The periosteum was freed to allow anatomic alignment of the distal fibular fracture. The talus was then translated medially to allow the medial talar dome to rest against the medial malleolus. At this time, utilizing two bone reduction clamps, the distal fibular fracture was brought out to length and fixated temporarily in anatomic alignment. Fluoroscopy was used. There was noted to be a reduced ankle mortise without any lateral or distal gapping of the fracture fragment. An [id number] interfragmentary screw was then placed and this was a Synthes screw. Next a distal fibular plate was then placed. Multiple locking and non-locking screws were then placed within the distal aspect of the fibula being careful not to violate the lateral gutter of the ankle. Proximal locking fibular plate screws were then placed. Due to the nature of the injury, we decided to stabilize the syndesmosis at this time. Two bicortical screws were then placed, one just above the interfrag and this was bicortical screw and then one was made just distal to the interfrag approximately 1.5 cm above the articular surface of the tibiotalar joint. The fibula was then stressed. There was internal and external rotation maneuvering taking place and there was no medial space gapping. Careful evaluation of the medial malleolus took place. There were no obvious signs of step-off, fracture or obvious soft tissue impingement preventing any anatomic reduction. This then concluded the surgery of open reduction internal fixation with stabilization of the syndesmosis. The wound was then flushed with copious amounts of normal saline. Deep fascia and periosteum were closed utilizing 3-0 Vicryl. Deep dermis was closed utilizing 3-0 Vicryl and skin was closed utilizing jluis. Xeroform was placed along the wound edge. A bulky bandage was placed. A Bui compressive dressing and a Sugar-Tong and posterior splint was then applied upon relieving the tourniquet. There was noted to be a prompt hyperemic response to all digits without any delayed capillary fill time. The patient was then transferred from the operating room to the post-anesthesia care unit with all vital signs stable. We will set start physical therapy within the next 24 to 48 hours. My recommendation is DVT prophylaxis; orders were placed. The patient may need placement. We will see how he does with physical therapy as he is non-weightbearing. JUANA Jordan/MARGIE /10:02 AM /1:03 PM
[2016-12-18 14:05] LABS: BICARBONATE 22.5 MEQ/L (21.0-32.0); POTASSIUM 4.2 MEQ/L (3.5-5.1)
[2016-12-18] MEDS ORDERED: PROPOFOL 200 MG/20 ML AMP IV ONE (14:31)
[2016-12-18] MEDS ORDERED: MIDAZOLAM HCL 2 MG/2 ML VIAL IV ONE (14:31)
[2016-12-18] MEDS ORDERED: LIDOCAINE HCL 1% PF 5 ML AMPULE OTHER ONE (14:31)
[2016-12-18] MEDS ORDERED: PHENYLEPH/NS 1000 MCG/10 ML SYR IV ONE (14:31)
[2016-12-18] MEDS ORDERED: ePHEDrine/NS 25 MG/5 ML SYR IV ONE (14:31)
[2016-12-18] MEDS ORDERED: PHENYLEPHRINE HCL 10 MG/ML VIAL IV ONE (14:31)
[2016-12-18] MEDS ORDERED: ONDANSETRON HCL 4 MG/2 ML VIAL IV PUSH ONE (14:31)
[2016-12-18] MEDS ORDERED: DEXAMETHASONE SOD PHOS 4 MG/ML VIAL IV ONE (14:31)
[2016-12-18] MEDS: HYDROmorphone HCL PF 1 MG/ML VIAL IV PUSH PRN ×3 (15:03→23:38)
[2016-12-18 15:16] LABS: AUTOMATED NEUTROPHIL # 8.1 TH/MM3 (1.8-7.7); BASOPHIL % 0.1 % (0.0-2.0); EOSINOPHIL % 0.1 % (0.0-4.0); HEMATOCRIT 45.7 % (39.0-51.0); LYMPH % 10.6 % (9.0-44.0); MEAN CELL VOLUME 100.3 FL (80.0-100.0); MEAN CORPUSCULAR HEMOGLOBIN 33.8 PG (27.0-34.0); MEAN CORPUSCULAR HGB CONC 33.7 % (32.0-36.0); MONO % 1.2 % (0.0-8.0); PLATELET COUNT 132 TH/MM3 (150-450); RED BLOOD COUNT 4.55 MIL/MM3 (4.50-5.90); RED CELL DISTRIBUTION WIDTH 14.9 % (11.6-17.2); WHITE BLOOD COUNT 9.2 TH/MM3 (4.0-11.0)
[2016-12-18 15:17] VITALS: BP 123/78; PULSE 84; RESP 18; TEMP 97.5; O2SAT 93
[2016-12-18 15:18] LABS: HEMO FLAGS AUTO DIFF
[2016-12-18 16:27] LABS: BANDS 2 % (0-6); METAMYELOCYTES 2 % (0-1); NEUTROPHIL # MANUAL DIFF 8.4 TH/MM3 (1.8-7.7); POLYS (SEG NEUTROPHILS) 87 % (16-70); SCAN/DIFF FINAL DIFF MANUAL; WBC DIFF SAMPLE 100
[2016-12-18 22:00] VITALS: BP 129/68; PULSE 92; RESP 14; TEMP 96.7; O2SAT 95
[2016-12-18] MEDS ORDERED: ENOXAPARIN SODIUM 30 MG/0.3 ML SYRINGE SQ SCH (22:00)
[2016-12-18] MEDS: SODIUM CHLOR 0.9% 1000 ML INJ 1,000 ML IV SCH (23:30)
[2016-12-19] VITALS (9 sets, daily range): BP systolic 104–149; BP diastolic 57–83; PULSE 68–88; RESP 17–19; TEMP 96.2–97.2; O2SAT 92–98
[2016-12-19] MEDS: HYDROmorphone HCL PF 1 MG/ML VIAL IV PUSH PRN ×3 (04:18→21:45)
--- NOTE | 2016-12-19 06:51 | PD.POD ---
Subjective Pain score: 5 Remarks Pain is controlled by meds, no BM Past Med/Surg/Social History Social History Smoking Status: Former Smoker Objective Vital Signs Vital Signs Date Time Temp Pulse Resp B/P (MAP) Pulse Ox O2 Delivery O2 Flow Rate FiO2 12/19/16 04:00 96.2 87 17 149/57 (87) 92 12/19/16 00:30 87 12/19/16 00:00 96.8 88 17 104/65 (78) 93 12/18/16 22:00 96.7 92 14 129/68 (88) 95 12/18/16 15:17 97.5 84 18 123/78 (93) 93 12/18/16 12:15 96.3 70 17 134/81 (98) 96 12/18/16 11:45 75 18 119/65 (83) 95 Room Air 12/18/16 11:30 73 18 124/68 (86) 94 Room Air 12/18/16 11:00 75 18 115/61 (79) 95 Room Air 12/18/16 10:45 74 18 106/57 (73) 93 Room Air 12/18/16 10:30 72 18 111/58 (75) 94 Room Air 12/18/16 10:15 76 18 96/59 (71) 93 Room Air 12/18/16 10:00 75 18 100/60 (73) 93 Room Air 12/18/16 09:52 97.5 75 18 107/62 (77) 96 Simple Mask 12/18/16 07:18 96.7 71 18 136/74 (94) 95 Coded Allergies: acetaminophen (Unverified Allergy, Severe, Rash, 10/18/16) codeine (Unverified Allergy, Severe, Rash, 10/18/16) Medications and IVs Administered Medications Medications (Trade) Dose Ordered Sig/Satinder Route PRN Reason Start Time Stop Time Status Last Admin Dose Admin Sodium Chloride (NS Flush) 2 ml BID IV FLUSH 12/17/16 21:00 12/17/16 20:59 Senna/Docusate Sodium (Marialuisa-Colace) 1 tab BID PO 12/17/16 21:00 12/18/16 20:57 Sodium Chloride 1,000 ml @ 30 mls/hr Q24H IV 12/17/16 23:30 12/17/16 23:03 Hydromorphone HCl (Dilaudid Pf Inj) 0.5 mg Q4H PRN IV PUSH PAIN 4-10 12/17/16 18:15 12/19/16 04:18 Bumetanide (Bumetanide) 1 mg BID PO 12/17/16 21:00 12/18/16 20:57 Carvedilol (Coreg) 12.5 mg DAILY PO 12/18/16 09:00 12/18/16 07:14 Pantoprazole Sodium (Protonix) 40 mg BID PO 12/17/16 21:00 12/18/16 20:57 Lisinopril (Prinivil) 5 mg BID PO 12/17/16 21:00 12/18/16 20:57 Spironolactone (Aldactone) 25 mg DAILY PO 12/18/16 09:00 12/18/16 07:14 Other Results CBC & BMP Diagram 12/18/16 12:55 Calcium Level 8.8 12/18/16 14:11 Physical Exam General appearance: comfortable Nutritional status: overweight Orientation: alert and oriented x3 Deformities RT LE: Splint intact with no strikethru, good CFT to digits, sensation is intact, no calf or thigh tenderness Assessment & Plan Diagnosis: (1) Fibula fracture ICD Codes: S82.409A - Unspecified fracture of shaft of unspecified fibula, initial encounter for closed fracture Status: Acute (2) Right ankle swelling ICD Codes: M25.471 - Effusion, right ankle Status: Acute Plan: SP ORIF 12-18. Reviewed PT goals today, see if pt can non WB right, may need SNF placement if fails PT, ok to start Lovenox later today. FU in AM tomorrow. Problem Qualifiers (1) Fibula fracture: Qualified Codes: S82.831A - Other fracture of upper and lower end of right fibula, initial encounter for closed fracture Nilay Balbuena DPM Dec 19, 2016 06:51
[2016-12-19] MEDS: MAGNESIUM HYDROXIDE SUSP 30 ML CUP PO PRN (08:42)
[2016-12-19] MEDS: DOCUSATE SODIUM 50 MG/SENNA 8.6 MG TAB PO SCH ×2 (08:42→19:55)
[2016-12-19] MEDS: ALLOPURINOL 300 MG TAB PO SCH (08:42)
[2016-12-19] MEDS: PANTOPRAZOLE SOD 40 MG DELAYED RELEASE TAB PO SCH ×2 (08:43→19:55)
[2016-12-19] MEDS: BUMETANIDE 1 MG TAB PO SCH ×2 (08:43→19:55)
[2016-12-19] MEDS: PRAVASTATIN SOD 40 MG TAB PO SCH (08:43)
[2016-12-19] MEDS: COLCHICINE 0.6 MG TAB PO SCH (08:43)
[2016-12-19] MEDS: CARVEDILOL 12.5 MG TAB PO SCH (08:43)
[2016-12-19] MEDS: SPIRONOLACTONE 25 MG TAB PO SCH (08:43)
[2016-12-19] MEDS: LISINOPRIL 5 MG TAB PO SCH ×2 (08:43→19:55)
[2016-12-19] MEDS: SODIUM CHLORIDE 0.9% FLUSH 10 ML FLUSH IV FLUSH SCH ×2 (08:44→19:58)
[2016-12-19] MEDS: ENOXAPARIN SODIUM 30 MG/0.3 ML SYRINGE SQ SCH (09:30)
--- NOTE | 2016-12-19 11:28 | HHI.PR ---
Subjective Remarks in no acute distress. pain is controlled. no BM yet. no other complaints. Objective Vitals Vital Signs Date Time Temp Pulse Resp B/P (MAP) Pulse Ox O2 Delivery O2 Flow Rate FiO2 12/19/16 08:00 97.0 79 19 127/79 (95) 98 12/19/16 04:00 96.2 87 17 149/57 (87) 92 12/19/16 00:30 87 12/19/16 00:00 96.8 88 17 104/65 (78) 93 12/18/16 22:00 96.7 92 14 129/68 (88) 95 12/18/16 15:17 97.5 84 18 123/78 (93) 93 12/18/16 12:15 96.3 70 17 134/81 (98) 96 12/18/16 11:45 75 18 119/65 (83) 95 Room Air 12/18/16 11:30 73 18 124/68 (86) 94 Room Air I/O 12/18/16 12/18/16 12/18/16 12/19/16 12/19/16 12/19/16 07:00 15:00 23:00 07:00 15:00 23:00 Intake Total 180 ml 1240 ml 570.5 ml 915 ml Output Total 600 ml 300 ml 900 ml Balance 180 ml 640 ml 270.5 ml 15 ml Intake Oral 340 ml 480 ml 480 ml IV Total 180 ml 300 ml 90.5 ml 435 ml Other 600 ml Output Urine Total 550 ml 300 ml 900 ml Estimated Blood Loss 50 ml # Bowel Movements 0 0 0 Result Diagram: 12/18/16 1411 12/18/16 1255 Imaging Last Impressions Ankle X-Ray 12/18/16 0000 Signed Impressions: Service Date/Time: Sunday, December 18, 2016 08:58 - CONCLUSION: Good position and alignment on this postoperative study. Joel Newberry MD Chest X-Ray 12/17/16 1413 Signed Impressions: Service Date/Time: Saturday, December 17, 2016 14:39 - CONCLUSION: 1. Cardiomegaly. No acute pulmonary disease. Jose Waller MD Foot X-Ray 12/17/16 1208 Signed Impressions: Service Date/Time: Saturday, December 17, 2016 12:28 - CONCLUSION: 1. Distal fibula fracture Jose Waller MD Objective Remarks GENERAL: This is a well-nourished, well-developed patient, in no apparent distress. CARDIOVASCULAR: Regular rate and regular rhythm without murmurs, gallops, or rubs. RESPIRATORY: Clear to auscultation. Breath sounds equal bilaterally. No wheezes , rales, or rhonchi. GASTROINTESTINAL: Abdomen soft, non-tender, nondistended. Normal, active bowel sounds MUSCULOSKELETAL: right ankle covered with clean dressing. NEURO: Alert & Oriented x4 to person, place, time, situation. Moves all ext x4 Procedures ORIF right ankle fracture. Medications and IVs Current Medications Ketorolac Tromethamine (Toradol Inj) 30 mg ONCE ONCE IM Last administered on 12/17/16 12:24; Start 12/17/16 at 12:15; Stop 12/17/16 at 12:16; Status DC Sodium Chloride (NS Flush) 2 ml UNSCH PRN IV FLUSH FLUSH AFTER USING IV ACCESS ; Start 12/17/16 at 14:45 Sodium Chloride (NS Flush) 2 ml BID IV FLUSH Last administered on 12/19/16 08 :44; Start 12/17/16 at 21:00 Ondansetron HCl (Zofran Inj) 4 mg Q6H PRN IVP NAUSEA OR VOMITING; Start at 14:45 Temazepam (Restoril) 15 mg HS PRN PO INSOMNIA; Start 12/17/16 at 14:45 Naloxone HCl (Narcan Inj) 0.4 mg UNSCH PRN IV PUSH SEE LABEL COMMENTS; Start 12/17/16 at 14:45 Senna/Docusate Sodium (Marialuisa-Colace) 1 tab BID PO Last administered on 08:42; Start 12/17/16 at 21:00 Magnesium Hydroxide (Milk Of Magnesia Liq) 30 ml Q12H PRN PO Mild constipation Last administered on 12/19/16 08:42; Start 12/17/16 at 14:45 Sennosides (Senokot) 17.2 mg Q12H PRN PO Moderate constipation; Start at 14:45 Lactulose (Lactulose Liq) 30 ml DAILY PRN PO SEVERE CONSITIPATION; Start 12/17 at 14:45 Sodium Chloride 1,000 ml @ 30 mls/hr Q24H IV Last administered on 12/17/16 23:03; Start 12/17/16 at 23:30 Acetaminophen/ Hydrocodone Bitart (Hiltons 5-325 Mg) 1 tab Q4H PRN PO PAIN 3-10 ; Start 12/17/16 at 18:15; Stop 12/17/16 at 18:40; Status DC Hydromorphone HCl (Dilaudid Pf Inj) 0.5 mg Q4H PRN IV PUSH PAIN 4-10 Last administered on 12/19/16 04:18; Start 12/17/16 at 18:15 Allopurinol (Zyloprim) 300 mg DAILY PO Last administered on 12/19/16 08:42; Start 12/18/16 at 09:00 Bumetanide (Bumetanide) 1 mg BID PO Last administered on 12/19/16 08:43; Start 12/17/16 at 21:00 Carvedilol (Coreg) 12.5 mg DAILY PO Last administered on 12/19/16 08:43; Start 12/18/16 at 09:00 Colchicine (Colchicine) 0.6 mg DAILY PO Last administered on 12/19/16 08:43; Start 12/18/16 at 09:00 Pantoprazole Sodium (Protonix) 40 mg BID PO Last administered on 12/19/16 08: 43; Start 12/17/16 at 21:00 Lisinopril (Prinivil) 5 mg BID PO Last administered on 12/19/16 08:43; Start 12/17/16 at 21:00 Spironolactone (Aldactone) 25 mg DAILY PO Last administered on 12/19/16 08:43 ; Start 12/18/16 at 09:00 Pravastatin Sodium (Pravachol) 40 mg DAILY PO Last administered on 12/19/16 08:43; Start 12/18/16 at 09:00 Lactated Ringer's 1,000 ml @ 30 mls/hr Q24H PRN IV SEE LABEL COMMENTS; Start 12/17/16 at 22:15; Stop 12/20/16 at 22:14 Sodium Chloride 500 ml @ 30 mls/hr [id number] PRN IV SEE LABEL COMMENTS; Start at 22:15; Stop 12/20/16 at 22:14 Povidone Iodine (Betadine 5% Antisepsis Kit) 1 applic DIRECTOR OF APPLICATION DEVELOPMENT PRN EACH NARE SEE LABEL COMMENTS; Start 12/17/16 at 22:15; Stop 12/20/16 at 22:14 Chlorhexidine Gluconate (Chlorhexidine 2% Cloth) 3 pack DIRECTOR OF APPLICATION DEVELOPMENT PRN TOPICAL SEE LABEL COMMENTS; Start 12/17/16 at 22:15; Stop 12/20/16 at 22:14 Insulin Human Regular (NovoLIN R INJ) See Protocol Table ... DIRECTOR OF APPLICATION DEVELOPMENT PRN SQ SEE PROTOCOL TABLE; Start 12/17/16 at 22:15; Stop 12/20/16 at 22:14 Bupivacaine HCl (Marcaine Pf 0.25% Inj) 30 ml STK-MED ONCE .ROUTE ; Start 12/18 at 06:41; Stop 12/18/16 at 06:42; Status DC Gentamicin Sulfate (Gentamicin Inj) 160 mg STK-MED ONCE .ROUTE ; Start at 06:41; Stop 12/18/16 at 06:42; Status DC Cefazolin Sodium (Ancef Inj) 2,000 mg STK-MED ONCE .ROUTE Last administered on 12/18/16 08:00; Start 12/18/16 at 07:31; Stop 12/18/16 at 07:32; Status DC Gentamicin Sulfate (Gentamicin Inj) 240 mg STK-MED ONCE .ROUTE Last administered on 12/18/16 08:32; Start 12/18/16 at 07:39; Stop 12/18/16 at 07 :40; Status DC Propofol 50 ml @ As Directed STK-MED ONCE .ROUTE ; Start 12/18/16 at 09:18; Stop 12/18/16 at 09:19; Status DC Miscellaneous Information (Post-op Orders (for Pharmacy)) STAT ONCE XX ; Start 12/18/16 at 10:00; Stop 12/18/16 at 10:18; Status DC Enoxaparin Sodium (Lovenox Inj) 30 mg Q24H SQ ; Start 12/18/16 at 22:00; Stop 12/18/16 at 22:00; Status DC Miscellaneous Information ALL NURSING DEPARTME... UNSCH PRN .XX SEE LABEL COMMENTS; Start 12/18/16 at 09:51; Stop 12/19/16 at 09:50; Status DC Enoxaparin Sodium (Lovenox Inj) 30 mg Q24H SQ ; Start 12/19/16 at 09:30 A/P Assessment and Plan - right ankle fracture continue with pain control- podiatry consult appreciated- s/p ORIF; management per podiatry. PT consulted. -CAD- s/p stent placement; continue BB, REJI and statin -history of CHF- chronic systolic- s/p defibrillator placement- resume BB,REJI and diuretics -hypertension/ dyslipidemia; resumed home meds -DVT prophylaxis; on subq Lovenox- per podiatry. Discharge Planning when cleared by podiatry- pending PT recommendations. Regan Scanlon MD Dec 19, 2016 11:28
[2016-12-19] MEDS: SODIUM CHLOR 0.9% 1000 ML INJ 1,000 ML IV SCH (13:35)
[2016-12-19] MEDS ORDERED: CARVEDILOL 12.5 MG TAB PO ONE (22:30)
[2016-12-20 00:24] VITALS: BP 96/61; PULSE 62; RESP 18; TEMP 96.7; O2SAT 96
[2016-12-20] MEDS: HYDROmorphone HCL PF 1 MG/ML VIAL IV PUSH PRN (06:09)
--- NOTE | 2016-12-20 07:28 | PD.POD ---
Subjective Pain score: 5 Remarks Pain is controlled by meds, no BM, refusing lovenox, he said his Drs in the past said no blood thinners, he clarified he takes Tylenol Extra Strength with no issues, he is allergic to codeine. Past Med/Surg/Social History Social History Smoking Status: Former Smoker Objective Vital Signs Vital Signs Date Time Temp Pulse Resp B/P (MAP) Pulse Ox O2 Delivery O2 Flow Rate FiO2 12/20/16 00:24 96.7 62 18 96/61 (73) 96 12/19/16 20:15 97.1 70 18 133/83 (100) 98 12/19/16 16:00 97.0 69 18 110/75 (87) 95 12/19/16 12:10 68 12/19/16 12:00 97.2 68 18 109/71 (84) 94 12/19/16 08:00 97.0 79 19 127/79 (95) 98 Coded Allergies: acetaminophen (Unverified Allergy, Severe, Rash, 10/18/16) codeine (Unverified Allergy, Severe, Rash, 10/18/16) Medications and IVs Administered Medications Medications (Trade) Dose Ordered Sig/Satinder Route PRN Reason Start Time Stop Time Status Last Admin Dose Admin Sodium Chloride (NS Flush) 2 ml BID IV FLUSH 12/17/16 21:00 12/19/16 08:44 Senna/Docusate Sodium (Marialuisa-Colace) 1 tab BID PO 12/17/16 21:00 12/19/16 19:55 Magnesium Hydroxide (Milk Of Magnesia Liq) 30 ml Q12H PRN PO Mild constipation 12/17/16 14:45 12/19/16 08:42 Sodium Chloride 1,000 ml @ 30 mls/hr Q24H IV 12/17/16 23:30 12/19/16 13:35 Hydromorphone HCl (Dilaudid Pf Inj) 0.5 mg Q4H PRN IV PUSH PAIN 4-10 12/17/16 18:15 12/20/16 06:09 Allopurinol (Zyloprim) 300 mg DAILY PO 12/18/16 09:00 12/19/16 08:42 Bumetanide (Bumetanide) 1 mg BID PO 12/17/16 21:00 12/19/16 19:55 Colchicine (Colchicine) 0.6 mg DAILY PO 12/18/16 09:00 12/19/16 08:43 Pantoprazole Sodium (Protonix) 40 mg BID PO 12/17/16 21:00 12/19/16 19:55 Lisinopril (Prinivil) 5 mg BID PO 12/17/16 21:00 12/19/16 19:55 Spironolactone (Aldactone) 25 mg DAILY PO 12/18/16 09:00 12/19/16 08:43 Pravastatin Sodium (Pravachol) 40 mg DAILY PO 12/18/16 09:00 12/19/16 08:43 Exam-Podiatry Remarks RT LE: Splint intact with no strikethru, good CFT to digits, sensation is intact, no calf or thigh tenderness Assessment & Plan Diagnosis: (1) Fibula fracture ICD Codes: S82.409A - Unspecified fracture of shaft of unspecified fibula, initial encounter for closed fracture Status: Acute (2) Right ankle swelling ICD Codes: M25.471 - Effusion, right ankle Status: Acute Plan: SP ORIF 12-18. Reviewed PT goals today, Need SNF placement, ok to start Lovenox however will review with medicine, pain meds added Percocet. FU in AM tomorrow. Problem Qualifiers (1) Fibula fracture: Qualified Codes: S82.831A - Other fracture of upper and lower end of right fibula, initial encounter for closed fracture Nilay Balbuena DPM Dec 20, 2016 07:28
[2016-12-20 08:00] VITALS: BP 104/72; PULSE 69; RESP 18; TEMP 97.3; O2SAT 94
[2016-12-20 08:25] VITALS: PULSE 74
[2016-12-20] MEDS: MAGNESIUM HYDROXIDE SUSP 30 ML CUP PO PRN (08:53)
[2016-12-20] MEDS: LISINOPRIL 5 MG TAB PO SCH ×2 (08:54→20:25)
[2016-12-20] MEDS: BUMETANIDE 1 MG TAB PO SCH ×2 (08:54→20:25)
[2016-12-20] MEDS: ENOXAPARIN SODIUM 30 MG/0.3 ML SYRINGE SQ SCH (08:54)
[2016-12-20] MEDS: CARVEDILOL 12.5 MG TAB PO SCH ×2 (08:55→20:25)
[2016-12-20] MEDS: COLCHICINE 0.6 MG TAB PO SCH (08:55)
[2016-12-20] MEDS: ALLOPURINOL 300 MG TAB PO SCH (08:55)
[2016-12-20] MEDS: SPIRONOLACTONE 25 MG TAB PO SCH (08:55)
[2016-12-20] MEDS: PANTOPRAZOLE SOD 40 MG DELAYED RELEASE TAB PO SCH ×2 (08:55→20:25)
[2016-12-20] MEDS: DOCUSATE SODIUM 50 MG/SENNA 8.6 MG TAB PO SCH ×2 (08:55→20:25)
[2016-12-20] MEDS: PRAVASTATIN SOD 40 MG TAB PO SCH (08:55)
[2016-12-20] MEDS: oxyCODONE/ACETAMINOPHEN 5 MG/325 MG TAB PO PRN ×2 (08:56→21:41)
[2016-12-20] MEDS: SODIUM CHLORIDE 0.9% FLUSH 10 ML FLUSH IV FLUSH SCH ×2 (09:10→20:26)
--- NOTE | 2016-12-20 09:15 | HHI.PR ---
Subjective Remarks resting comfortably with no distress. pain is controlled. reportedly refused lovenox yesterday. d/w the RN. Objective Vitals Vital Signs Date Time Temp Pulse Resp B/P (MAP) Pulse Ox O2 Delivery O2 Flow Rate FiO2 12/20/16 08:00 97.3 69 18 104/72 (83) 94 12/20/16 00:24 96.7 62 18 96/61 (73) 96 12/19/16 20:15 97.1 70 18 133/83 (100) 98 12/19/16 16:00 97.0 69 18 110/75 (87) 95 12/19/16 12:10 68 12/19/16 12:00 97.2 68 18 109/71 (84) 94 I/O 12/19/16 12/19/16 12/19/16 12/20/16 12/20/16 12/20/16 07:00 15:00 23:00 07:00 15:00 23:00 Intake Total 915 ml 1020 ml 480 ml 360 ml Output Total 900 ml 200 ml 350 ml Balance 15 ml 820 ml 480 ml 10 ml Intake Oral 480 ml 720 ml 480 ml 360 ml IV Total 435 ml 300 ml Output Urine Total 900 ml 200 ml 350 ml # Voids 4 2 # Bowel Movements 0 0 0 Result Diagram: 12/18/16 1411 12/18/16 1255 Imaging Last Impressions Ankle X-Ray 12/18/16 0000 Signed Impressions: Service Date/Time: Sunday, December 18, 2016 08:58 - CONCLUSION: Good position and alignment on this postoperative study. Joel Newberry MD Chest X-Ray 12/17/16 1413 Signed Impressions: Service Date/Time: Saturday, December 17, 2016 14:39 - CONCLUSION: 1. Cardiomegaly. No acute pulmonary disease. Jose Waller MD Foot X-Ray 12/17/16 1208 Signed Impressions: Service Date/Time: Saturday, December 17, 2016 12:28 - CONCLUSION: 1. Distal fibula fracture Jose Waller MD Objective Remarks GENERAL: This is a well-nourished, well-developed patient, in no apparent distress. CARDIOVASCULAR: Regular rate and regular rhythm without murmurs, gallops, or rubs. RESPIRATORY: Clear to auscultation. Breath sounds equal bilaterally. No wheezes , rales, or rhonchi. GASTROINTESTINAL: Abdomen soft, non-tender, nondistended. Normal, active bowel sounds MUSCULOSKELETAL: right ankle covered with clean dressing. NEURO: Alert & Oriented x4 to person, place, time, situation. Moves all ext x4 Procedures ORIF right ankle fracture. Medications and IVs Current Medications Ketorolac Tromethamine (Toradol Inj) 30 mg ONCE ONCE IM Last administered on 12/17/16 12:24; Start 12/17/16 at 12:15; Stop 12/17/16 at 12:16; Status DC Sodium Chloride (NS Flush) 2 ml UNSCH PRN IV FLUSH FLUSH AFTER USING IV ACCESS ; Start 12/17/16 at 14:45 Sodium Chloride (NS Flush) 2 ml BID IV FLUSH Last administered on 12/20/16 09 :10; Start 12/17/16 at 21:00 Ondansetron HCl (Zofran Inj) 4 mg Q6H PRN IVP NAUSEA OR VOMITING; Start at 14:45 Temazepam (Restoril) 15 mg HS PRN PO INSOMNIA; Start 12/17/16 at 14:45 Naloxone HCl (Narcan Inj) 0.4 mg UNSCH PRN IV PUSH SEE LABEL COMMENTS; Start 12/17/16 at 14:45 Senna/Docusate Sodium (Marialuisa-Colace) 1 tab BID PO Last administered on 08:55; Start 12/17/16 at 21:00 Magnesium Hydroxide (Milk Of Magnesia Liq) 30 ml Q12H PRN PO Mild constipation Last administered on 12/20/16 08:53; Start 12/17/16 at 14:45 Sennosides (Senokot) 17.2 mg Q12H PRN PO Moderate constipation; Start at 14:45 Lactulose (Lactulose Liq) 30 ml DAILY PRN PO SEVERE CONSITIPATION; Start 12/17 at 14:45 Sodium Chloride 1,000 ml @ 30 mls/hr Q24H IV Last administered on 12/19/16 13:35; Start 12/17/16 at 23:30 Acetaminophen/ Hydrocodone Bitart ([place] 5-325 Mg) 1 tab Q4H PRN PO PAIN 3-10 ; Start 12/17/16 at 18:15; Stop 12/17/16 at 18:40; Status DC Hydromorphone HCl (Dilaudid Pf Inj) 0.5 mg Q4H PRN IV PUSH PAIN 4-10 Last administered on 12/20/16 06:09; Start 12/17/16 at 18:15 Allopurinol (Zyloprim) 300 mg DAILY PO Last administered on 12/20/16 08:55; Start 12/18/16 at 09:00 Bumetanide (Bumetanide) 1 mg BID PO Last administered on 12/20/16 08:54; Start 12/17/16 at 21:00 Carvedilol (Coreg) 12.5 mg DAILY PO Last administered on 12/19/16 08:43; Start 12/18/16 at 09:00; Stop 12/19/16 at 22:22; Status DC Colchicine (Colchicine) 0.6 mg DAILY PO Last administered on 12/20/16 08:55; Start 12/18/16 at 09:00 Pantoprazole Sodium (Protonix) 40 mg BID PO Last administered on 12/20/16 08: 55; Start 12/17/16 at 21:00 Lisinopril (Prinivil) 5 mg BID PO Last administered on 12/20/16 08:54; Start 12/17/16 at 21:00 Spironolactone (Aldactone) 25 mg DAILY PO Last administered on 12/20/16 08:55 ; Start 12/18/16 at 09:00 Pravastatin Sodium (Pravachol) 40 mg DAILY PO Last administered on 12/20/16 08:55; Start 12/18/16 at 09:00 Lactated Ringer's 1,000 ml @ 30 mls/hr Q24H PRN IV SEE LABEL COMMENTS; Start 12/17/16 at 22:15; Stop 12/20/16 at 22:14 Sodium Chloride 500 ml @ 30 mls/hr [id number] PRN IV SEE LABEL COMMENTS; Start at 22:15; Stop 12/20/16 at 22:14 Povidone Iodine (Betadine 5% Antisepsis Kit) 1 applic DIRECTOR OF CARDIOLOGY PRN EACH NARE SEE LABEL COMMENTS; Start 12/17/16 at 22:15; Stop 12/20/16 at 22:14 Chlorhexidine Gluconate (Chlorhexidine 2% Cloth) 3 pack DIRECTOR OF CARDIOLOGY PRN TOPICAL SEE LABEL COMMENTS; Start 12/17/16 at 22:15; Stop 12/20/16 at 22:14 Insulin Human Regular (NovoLIN R INJ) See Protocol Table ... DIRECTOR OF CARDIOLOGY PRN SQ SEE PROTOCOL TABLE; Start 12/17/16 at 22:15; Stop 12/20/16 at 22:14 Bupivacaine HCl (Marcaine Pf 0.25% Inj) 30 ml STK-MED ONCE .ROUTE ; Start 12/18 at 06:41; Stop 12/18/16 at 06:42; Status DC Gentamicin Sulfate (Gentamicin Inj) 160 mg STK-MED ONCE .ROUTE ; Start at 06:41; Stop 12/18/16 at 06:42; Status DC Cefazolin Sodium (Ancef Inj) 2,000 mg STK-MED ONCE .ROUTE Last administered on 12/18/16 08:00; Start 12/18/16 at 07:31; Stop 12/18/16 at 07:32; Status DC Gentamicin Sulfate (Gentamicin Inj) 240 mg STK-MED ONCE .ROUTE Last administered on 12/18/16 08:32; Start 12/18/16 at 07:39; Stop 12/18/16 at 07 :40; Status DC Propofol 50 ml @ As Directed STK-MED ONCE .ROUTE ; Start 12/18/16 at 09:18; Stop 12/18/16 at 09:19; Status DC Miscellaneous Information (Post-op Orders (for Pharmacy)) STAT ONCE XX ; Start 12/18/16 at 10:00; Stop 12/18/16 at 10:18; Status DC Enoxaparin Sodium (Lovenox Inj) 30 mg Q24H SQ ; Start 12/18/16 at 22:00; Stop 12/18/16 at 22:00; Status DC Miscellaneous Information ALL NURSING DEPARTME... UNSCH PRN .XX SEE LABEL COMMENTS; Start 12/18/16 at 09:51; Stop 12/19/16 at 09:50; Status DC Enoxaparin Sodium (Lovenox Inj) 30 mg Q24H SQ Last administered on 12/20/16 08:54; Start 12/19/16 at 09:30 Carvedilol (Coreg) 12.5 mg Q12HR PO Last administered on 12/20/16 08:55; Start 12/20/16 at 09:00 Carvedilol (Coreg) 12.5 mg ONCE ONCE PO Last administered on 12/19/16 22:36 ; Start 12/19/16 at 22:30; Stop 12/19/16 at 22:31; Status DC Oxycodone/ Acetaminophen (Percocet 5-325 Mg) 1 tab Q4H PRN PO PAIN SCALE 5 TO 10 Last administered on 12/20/16 08:56; Start 12/20/16 at 07:30 A/P Problem List: (1) Fibula fracture ICD Code: S82.409A - Unspecified fracture of shaft of unspecified fibula, initial encounter for closed fracture Status: Acute Assessment and Plan - right ankle fracture continue with pain control- podiatry consult appreciated- s/p ORIF; management per podiatry. PT consulted. -CAD- s/p stent placement; continue BB, REJI and statin -history of CHF- chronic systolic- s/p defibrillator placement- resumed BB,REJI and diuretics -hypertension/ dyslipidemia; resumed home meds -DVT prophylaxis; on subq Lovenox- per podiatry. d/w the patient today regarding the importance of DVT prophylaxis with Lovenox ; he understood and agreed. Discharge Planning dc to SNF tomorrow if stable. d/w today. Problem Qualifiers (1) Fibula fracture: Qualified Codes: S82.831A - Other fracture of upper and lower end of right fibula, initial encounter for closed fracture Regan Scanlon MD Dec 20, 2016 09:15
[2016-12-20] MEDS ORDERED: ULTR50TA5 PO (09:19)
[2016-12-20] MEDS ORDERED: ENOX30P SQ (09:19)
[2016-12-20 12:00] VITALS: BP 113/70; PULSE 62; RESP 18; TEMP 97.9; O2SAT 95
[2016-12-20 16:00] VITALS: BP_SYST 102; BP_SYST 111; BP_DIAS 58; BP_DIAS 67; PULSE 71; PULSE 86; RESP 16; RESP 17; TEMP 97.6; O2SAT 96; O2SAT 97
[2016-12-20 20:00] VITALS: BP 97/62; PULSE 71; RESP 17; TEMP 97.2; O2SAT 95
[2016-12-20] MEDS: SODIUM CHLOR 0.9% 1000 ML INJ 1,000 ML IV SCH (20:26)
[2016-12-21 00:10] VITALS: BP 112/72; PULSE 82; RESP 18; TEMP 96.7; O2SAT 92
[2016-12-21] MEDS: oxyCODONE/ACETAMINOPHEN 5 MG/325 MG TAB PO PRN ×2 (03:25→11:20)
[2016-12-21 03:29] VITALS: BP 99/61; PULSE 72; RESP 18; TEMP 96.6; O2SAT 96
[2016-12-21 08:00] VITALS: BP 100/65; PULSE 66; PULSE 72; RESP 19; TEMP 97.2; O2SAT 97
[2016-12-21] MEDS: SPIRONOLACTONE 25 MG TAB PO SCH (08:06)
[2016-12-21] MEDS: ALLOPURINOL 300 MG TAB PO SCH (08:06)
[2016-12-21] MEDS: BUMETANIDE 1 MG TAB PO SCH (08:06)
[2016-12-21] MEDS: CARVEDILOL 12.5 MG TAB PO SCH (08:06)
[2016-12-21] MEDS: LISINOPRIL 5 MG TAB PO SCH (08:07)
[2016-12-21] MEDS: DOCUSATE SODIUM 50 MG/SENNA 8.6 MG TAB PO SCH (08:07)
[2016-12-21] MEDS: COLCHICINE 0.6 MG TAB PO SCH (08:07)
[2016-12-21] MEDS: PANTOPRAZOLE SOD 40 MG DELAYED RELEASE TAB PO SCH (08:07)
[2016-12-21] MEDS: PRAVASTATIN SOD 40 MG TAB PO SCH (08:07)
[2016-12-21] MEDS: ENOXAPARIN SODIUM 30 MG/0.3 ML SYRINGE SQ SCH (08:08)
[2016-12-21] MEDS: SODIUM CHLORIDE 0.9% FLUSH 10 ML FLUSH IV FLUSH SCH (08:12)
--- NOTE | 2016-12-21 08:50 | PD.POD ---
Subjective Pain score: 5 Remarks Pain is controlled by meds, on lovenox, ready to go to SNF Past Med/Surg/Social History Social History Smoking Status: Former Smoker Objective Vital Signs Vital Signs Date Time Temp Pulse Resp B/P (MAP) Pulse Ox O2 Delivery O2 Flow Rate FiO2 12/21/16 08:00 97.2 66 19 100/65 (77) 97 12/21/16 03:29 96.6 72 18 99/61 (74) 96 12/21/16 00:10 96.7 82 18 112/72 (85) 92 12/20/16 20:00 97.2 71 17 97/62 (74) 95 12/20/16 16:00 97.6 71 16 111/67 (82) 96 12/20/16 12:00 97.9 62 18 113/70 (84) 95 Coded Allergies: codeine (Unverified Allergy, Severe, Rash, 10/18/16) acetaminophen (Verified Adverse Reaction, Mild, Rash, 12/20/16) Physical Exam Remarks RT LE: Splint intact with no strikethru, good CFT to digits, sensation is intact, no calf or thigh tenderness Assessment & Plan Diagnosis: (1) Fibula fracture ICD Codes: S82.409A - Unspecified fracture of shaft of unspecified fibula, initial encounter for closed fracture Status: Acute (2) Right ankle swelling ICD Codes: M25.471 - Effusion, right ankle Status: Acute Plan: SP ORIF 12-18. Reviewed PT goals today, Need SNF placement, [place] Lovenox 30 mg Sq for total of 21 days, DVT prevention, non wb right foot, no bandage change needed, FU in office 1 week. Will follow out pt at this point. Problem Qualifiers (1) Fibula fracture: Qualified Codes: S82.831A - Other fracture of upper and lower end of right fibula, initial encounter for closed fracture Nilay Balbuena DPM Dec 21, 2016 08:50
--- NOTE | 2016-12-21 08:54 | HHI.PR ---
Subjective Remarks in no acute distress. pain is fairly controlled. d/w the RN and no acute issues over night. Objective Vitals Vital Signs Date Time Temp Pulse Resp B/P (MAP) Pulse Ox O2 Delivery O2 Flow Rate FiO2 12/21/16 08:00 97.2 66 19 100/65 (77) 97 12/21/16 03:29 96.6 72 18 99/61 (74) 96 12/21/16 00:10 96.7 82 18 112/72 (85) 92 12/20/16 20:00 97.2 71 17 97/62 (74) 95 12/20/16 16:00 97.6 71 16 111/67 (82) 96 12/20/16 12:00 97.9 62 18 113/70 (84) 95 I/O 12/20/16 12/20/16 12/20/16 12/21/16 12/21/16 12/21/16 07:00 15:00 23:00 07:00 15:00 23:00 Intake Total 360 ml 720 ml 360 ml 360 ml Output Total 350 ml 600 ml 250 ml 675 ml Balance 10 ml 120 ml 110 ml -315 ml Intake Oral 360 ml 720 ml 360 ml 360 ml Output Urine Total 350 ml 600 ml 250 ml 675 ml # Voids 2 # Bowel Movements 0 0 0 0 Result Diagram: 12/18/16 1411 12/18/16 1255 Imaging Last Impressions Ankle X-Ray 12/18/16 0000 Signed Impressions: Service Date/Time: Sunday, December 18, 2016 08:58 - CONCLUSION: Good position and alignment on this postoperative study. Joel Newberry MD Chest X-Ray 12/17/16 1413 Signed Impressions: Service Date/Time: Saturday, December 17, 2016 14:39 - CONCLUSION: 1. Cardiomegaly. No acute pulmonary disease. Jose Waller MD Foot X-Ray 12/17/16 1208 Signed Impressions: Service Date/Time: Saturday, December 17, 2016 12:28 - CONCLUSION: 1. Distal fibula fracture Jose Waller MD Objective Remarks GENERAL: This is a well-nourished, well-developed patient, in no apparent distress. CARDIOVASCULAR: Regular rate and regular rhythm without murmurs, gallops, or rubs. RESPIRATORY: Clear to auscultation. Breath sounds equal bilaterally. No wheezes , rales, or rhonchi. GASTROINTESTINAL: Abdomen soft, non-tender, nondistended. Normal, active bowel sounds MUSCULOSKELETAL: right ankle covered with clean dressing. NEURO: Alert & Oriented x4 to person, place, time, situation. Moves all ext x4 Procedures ORIF right ankle fracture. Medications and IVs Current Medications Ketorolac Tromethamine (Toradol Inj) 30 mg ONCE ONCE IM Last administered on 12/17/16 12:24; Start 12/17/16 at 12:15; Stop 12/17/16 at 12:16; Status DC Sodium Chloride (NS Flush) 2 ml UNSCH PRN IV FLUSH FLUSH AFTER USING IV ACCESS ; Start 12/17/16 at 14:45 Sodium Chloride (NS Flush) 2 ml BID IV FLUSH Last administered on 12/21/16 08 :12; Start 12/17/16 at 21:00 Ondansetron HCl (Zofran Inj) 4 mg Q6H PRN IVP NAUSEA OR VOMITING; Start at 14:45 Temazepam (Restoril) 15 mg HS PRN PO INSOMNIA; Start 12/17/16 at 14:45 Naloxone HCl (Narcan Inj) 0.4 mg UNSCH PRN IV PUSH SEE LABEL COMMENTS; Start 12/17/16 at 14:45 Senna/Docusate Sodium (Marialuisa-Colace) 1 tab BID PO Last administered on 08:07; Start 12/17/16 at 21:00 Magnesium Hydroxide (Milk Of Magnesia Liq) 30 ml Q12H PRN PO Mild constipation Last administered on 12/20/16 08:53; Start 12/17/16 at 14:45 Sennosides (Senokot) 17.2 mg Q12H PRN PO Moderate constipation; Start at 14:45 Lactulose (Lactulose Liq) 30 ml DAILY PRN PO SEVERE CONSITIPATION; Start 12/17 at 14:45 Sodium Chloride 1,000 ml @ 30 mls/hr Q24H IV Last administered on 12/19/16 13:35; Start 12/17/16 at 23:30 Acetaminophen/ Hydrocodone Bitart ([place] 5-325 Mg) 1 tab Q4H PRN PO PAIN 3-10 ; Start 12/17/16 at 18:15; Stop 12/17/16 at 18:40; Status DC Hydromorphone HCl (Dilaudid Pf Inj) 0.5 mg Q4H PRN IV PUSH PAIN 4-10 Last administered on 12/20/16 06:09; Start 12/17/16 at 18:15 Allopurinol (Zyloprim) 300 mg DAILY PO Last administered on 12/21/16 08:06; Start 12/18/16 at 09:00 Bumetanide (Bumetanide) 1 mg BID PO Last administered on 12/21/16 08:06; Start 12/17/16 at 21:00 Carvedilol (Coreg) 12.5 mg DAILY PO Last administered on 12/19/16 08:43; Start 12/18/16 at 09:00; Stop 12/19/16 at 22:22; Status DC Colchicine (Colchicine) 0.6 mg DAILY PO Last administered on 12/21/16 08:07; Start 12/18/16 at 09:00 Pantoprazole Sodium (Protonix) 40 mg BID PO Last administered on 12/21/16 08: 07; Start 12/17/16 at 21:00 Lisinopril (Prinivil) 5 mg BID PO Last administered on 12/21/16 08:07; Start 12/17/16 at 21:00 Spironolactone (Aldactone) 25 mg DAILY PO Last administered on 12/21/16 08:06 ; Start 12/18/16 at 09:00 Pravastatin Sodium (Pravachol) 40 mg DAILY PO Last administered on 12/21/16 08:07; Start 12/18/16 at 09:00 Lactated Ringer's 1,000 ml @ 30 mls/hr Q24H PRN IV SEE LABEL COMMENTS; Start 12/17/16 at 22:15; Stop 12/20/16 at 22:14; Status DC Sodium Chloride 500 ml @ 30 mls/hr [id number] PRN IV SEE LABEL COMMENTS; Start at 22:15; Stop 12/20/16 at 22:14; Status DC Povidone Iodine (Betadine 5% Antisepsis Kit) 1 applic STEVEDORE [employer] PRN EACH NARE SEE LABEL COMMENTS; Start 12/17/16 at 22:15; Stop 12/20/16 at 22:14; Status DC Chlorhexidine Gluconate (Chlorhexidine 2% Cloth) 3 pack [employer] PRN TOPICAL SEE LABEL COMMENTS; Start 12/17/16 at 22:15; Stop 12/20/16 at 22:14; Status DC Insulin Human Regular (NovoLIN R INJ) See Protocol Table ... STEV[employer] PRN SQ SEE PROTOCOL TABLE; Start 12/17/16 at 22:15; Stop 12/20/16 at 22:14; Status DC Bupivacaine HCl (Marcaine Pf 0.25% Inj) 30 ml STK-MED ONCE .ROUTE ; Start 12/18 at 06:41; Stop 12/18/16 at 06:42; Status DC Gentamicin Sulfate (Gentamicin Inj) 160 mg STK-MED ONCE .ROUTE ; Start at 06:41; Stop 12/18/16 at 06:42; Status DC Cefazolin Sodium (Ancef Inj) 2,000 mg STK-MED ONCE .ROUTE Last administered on 12/18/16 08:00; Start 12/18/16 at 07:31; Stop 12/18/16 at 07:32; Status DC Gentamicin Sulfate (Gentamicin Inj) 240 mg STK-MED ONCE .ROUTE Last administered on 12/18/16 08:32; Start 12/18/16 at 07:39; Stop 12/18/16 at 07 :40; Status DC Propofol 50 ml @ As Directed STK-MED ONCE .ROUTE ; Start 12/18/16 at 09:18; Stop 12/18/16 at 09:19; Status DC Miscellaneous Information (Post-op Orders (for Pharmacy)) STAT ONCE XX ; Start 12/18/16 at 10:00; Stop 12/18/16 at 10:18; Status DC Enoxaparin Sodium (Lovenox Inj) 30 mg Q24H SQ ; Start 12/18/16 at 22:00; Stop 12/18/16 at 22:00; Status DC Miscellaneous Information ALL NURSING DEPARTME... UNSCH PRN .XX SEE LABEL COMMENTS; Start 12/18/16 at 09:51; Stop 12/19/16 at 09:50; Status DC Enoxaparin Sodium (Lovenox Inj) 30 mg Q24H SQ Last administered on 12/21/16 08:08; Start 12/19/16 at 09:30 Carvedilol (Coreg) 12.5 mg Q12HR PO Last administered on 12/21/16 08:06; Start 12/20/16 at 09:00 Carvedilol (Coreg) 12.5 mg ONCE ONCE PO Last administered on 12/19/16 22:36 ; Start 12/19/16 at 22:30; Stop 12/19/16 at 22:31; Status DC Oxycodone/ Acetaminophen (Percocet 5-325 Mg) 1 tab Q4H PRN PO PAIN SCALE 5 TO 10 Last administered on 12/21/16 03:25; Start 12/20/16 at 07:30 A/P Assessment and Plan - right ankle fracture continue with pain control- podiatry consult appreciated- s/p ORIF; management per podiatry. PT consulted. d/w today and patient was cleared for discharge. -CAD- s/p stent placement; continue BB, REJI and statin -history of CHF- chronic systolic- s/p defibrillator placement- resumed BB,REJI and diuretics -hypertension/ dyslipidemia; resumed home meds -DVT prophylaxis; on subq Lovenox- per podiatry. Discharge Planning dc to SNF today. see med list. f/u; PCP and podiatry. d/w the patient and RN. d/w . time spent 31 min. Regan Scanlon MD Dec 21, 2016 08:54
[2016-12-21] MEDS ORDERED: OXYC1TAB63 PO (08:55)
[2016-12-21] MEDS ORDERED: ENOX30P SQ (08:55)
--- NOTE | 2016-12-21 08:56 | HHI.DS ---
Discharge Summary Admission Date Dec 17, 2016 at 14:38 Discharge Date: Dec 21, 2016 Admitting Diagnosis right distal fibula fracture (1) Fibula fracture ICD Code: S82.409A - Unspecified fracture of shaft of unspecified fibula, initial encounter for closed fracture Diagnosis: Principal Status: Acute Procedures ORIF right ankle fracture. Brief History - From Admission patient is a 76 y/o male with history of CAD,hypertension, dyslipidemia, CHF who presented to ER with right ankle pain. he says that he was climbing up the stairs to his house when he twisted his ankle . this happened last Monday. he says that he started to have some pain and swelling of the right ankle and he decided to come to ER. he denies any prodromal symptoms including chest pain, sob or dizziness. there's no report of loss of consciousness or head trauma. pain at the time of my evaluation was mild. CBC/BMP: 12/18/16 1411 12/18/16 1255 Significant Findings Laboratory Tests Test 12/18/16 12:55 12/18/16 14:11 Blood Urea Nitrogen 22 MG/DL (7-18) Random Glucose 107 MG/DL (74-106) Chloride Level 109 MEQ/L (98-107) Estimat Glomerular Filtration Rate 58 ML/MIN (>89) Mean Corpuscular Volume 100.3 FL (80.0-100.0) Platelet Count 132 TH/MM3 (150-450) Neutrophils (%) (Auto) 88.0 % (16.0-70.0) Neutrophils # (Auto) 8.1 TH/MM3 (1.8-7.7) Neutrophils % (Manual) 87 % (16-70) Lymphocytes % 6 % (9-44) Neutrophils # (Manual) 8.4 TH/MM3 (1.8-7.7) Metamyelocytes 2 % (0-1) Imaging Last Impressions Ankle X-Ray 12/18/16 0000 Signed Impressions: Service Date/Time: Sunday, December 18, 2016 08:58 - CONCLUSION: Good position and alignment on this postoperative study. Joel Newberry MD Chest X-Ray 12/17/16 1413 Signed Impressions: Service Date/Time: Saturday, December 17, 2016 14:39 - CONCLUSION: 1. Cardiomegaly. No acute pulmonary disease. Jose Waller MD Foot X-Ray 12/17/16 1208 Signed Impressions: Service Date/Time: Saturday, December 17, 2016 12:28 - CONCLUSION: 1. Distal fibula fracture Jose Waller MD PE at Discharge GENERAL: This is a well-nourished, well-developed patient, in no apparent distress. CARDIOVASCULAR: Regular rate and regular rhythm without murmurs, gallops, or rubs. RESPIRATORY: Clear to auscultation. Breath sounds equal bilaterally. No wheezes , rales, or rhonchi. GASTROINTESTINAL: Abdomen soft, non-tender, nondistended. Normal, active bowel sounds MUSCULOSKELETAL: right ankle covered with clean dressing. NEURO: Alert & Oriented x4 to person, place, time, situation. Moves all ext x4 Hospital Course - right ankle fracture continue with pain control- podiatry consult appreciated- s/p ORIF; management per podiatry. PT consulted. d/w today and patient was cleared for discharge. -CAD- s/p stent placement; continue BB, REJI and statin -history of CHF- chronic systolic- s/p defibrillator placement- resumed BB,REJI and diuretics -hypertension/ dyslipidemia; resumed home meds -DVT prophylaxis; on subq Lovenox- per podiatry. Pt Condition on Discharge: Stable Discharge Disposition: Discharge to SNF Discharge Time: > 30 minutes Discharge Instructions DIET: Follow Instructions for: Heart Healthy Diet Activities you can perform: Non Weight Bearing Other Activity Instructions: right lower extremity. no bandage change needed. Follow up Referrals: PCP Follow-up Podiatry New Medications: Enoxaparin Inj (Lovenox Inj) 30 Mg/0.3 Ml Syr 30 MG SQ Q24H for dvt prophylaxis for 18 Days, INJECTION 0 Refills Oxycodone-Acetaminophen (Oxycodone-Acetaminophen) 5-325 mg Tab 1 TAB PO Q4H PRN for pain, #20 TAB 0 Refills Continued Medications: Allopurinol (Allopurinol) 300 Mg Tab 300 MG PO DAILY for Gout, #30 TAB 0 Refills Bumetanide (Bumetanide) 1 Mg Tab 1 MG PO BID, #60 TAB 0 Refills Carvedilol (Coreg) 12.5 Mg Tab 12.5 MG PO DAILY, #60 TAB 0 Refills Colchicine (Colchicine) 0.6 Mg Cap 0.6 MG PO DAILY for Gout, CAP 0 Refills Multiple Vitamin (Multiple Vitamin) 1 Tab 1 TAB PO DAILY for Nutritional Supplement, TAB 0 Refills Pantoprazole (Protonix) 40 Mg Tab 40 MG PO BID for Ulcer Prevention, #30 TAB 0 Refills Quinapril (Accupril) 5 Mg Tab 5 MG PO BID, #60 TAB 0 Refills Simvastatin (Simvastatin) 20 Mg Tab 20 MG PO DAILY for Cholesterol Management, #30 TAB 0 Refills Spironolactone (Spironolactone) 25 Mg Tab 25 MG PO DAILY, #30 TAB 0 Refills Regan Scanlon MD Dec 21, 2016 08:56
[2016-12-21 11:53] VITALS: BP 91/77; PULSE 84; RESP 19; TEMP 96.2; O2SAT 96
== END 2016-12-21 14:12 | DRG 493 ==
LOC: PHEFT 11:47 → PHEDA 14:27 → OBSVTOIN 14:38 → N06A 17:49
PROVIDERS: ADMIT Internal Medicine; ATTEND Internal Medicine
PROC: 0SSF04Z Reposition Right Ankle Joint with Internal Fixation Device, Open Approach (ICD-10-PCS; 2016-12-18)
PROC: 3E0R3BZ Introduction of Anesthetic Agent into Spinal Canal, Percutaneous Approach (ICD-10-PCS; 2016-12-18)
PROC: 0QSJ04Z Reposition Right Fibula with Internal Fixation Device, Open Approach (ICD-10-PCS; principal; 2016-12-18 07:52)
DX: S82.831A Other fracture of upper and lower end of right fibula, initial encounter for closed fracture (principal); I50.22 Chronic systolic (congestive) heart failure; I11.0 Hypertensive heart disease with heart failure; M10.9 Gout, unspecified; M77.31 Calcaneal spur, right foot; Y93.01 Activity, walking, marching and hiking; Y92.009 Unspecified place in unspecified non-institutional (private) residence as the place of occurrence of the external cause; K21.9 Gastro-esophageal reflux disease without esophagitis; Z85.828 Personal history of other malignant neoplasm of skin; Z87.11 Personal history of peptic ulcer disease; Z87.891 Personal history of nicotine dependence; I25.10 Atherosclerotic heart disease of native coronary artery without angina pectoris; Z95.5 Presence of coronary angioplasty implant and graft; Z95.810 Presence of automatic (implantable) cardiac defibrillator; H91.90 Unspecified hearing loss, unspecified ear; W10.9XXA Fall (on) (from) unspecified stairs and steps, initial encounter; S93.04XA Dislocation of right ankle joint, initial encounter
CPT/HCPCS: 71010; 73600; 73610; 73620; 76000; 80048; 85007; 85025; 85027; 85610; 85730; 93005; 96374; C1713; J0690; J1100; J1170; J1580; J1650; J1885; J2250; J2370; J2405; J3010; J7030